=== PATIENT | female | born 1960 | race Caucasian/White ===

== ENCOUNTER 2016-10-20 13:07 | Inpatient (IN) | payer OTHER ==
[~2016-10-20] VITALS: Ht 162.6 cm; Wt 86.2 kg
[~2016-10-20 13:07] MED LIST: ACET500T68 PO; ASPI81TA2 PO; ATOR10TA PO; CITA20TA9 PO; FEXO180T5 PO; FEXO1TAB31 PO; FLUT12HF2 IH; FLUT1DIS IH; HYDR25CA PO; LANS30CA17 PO; LATA2.5D2 OP; LEVO750P7 IV; METH4TAB2 PO; METR500P3 IV; MOME13HF2 IH; MONT10TA9 PO; ONDA4TAB10 SL; OXYC-244 PO; OXYC5TAB PO; PANT40TA3 PO; RANI150T6 PO; XOPENEX HFA15 GM IH; ZONI100C12 PO
[2016-10-20] MEDS ORDERED: IV NORMAL SALINE 1000ML BAG 1,000 ML IV ONE ×2 (13:45→16:30)
[2016-10-20] MEDS ORDERED: ONDANSETRON PF 4 MG/2 ML VIAL. IV ONE ×2 (13:45→16:30)
--- NOTE | 2016-10-20 13:59 | ED.ADGEN ---
Past Medical History Past Medical History: Anemia, Arthritis, Asthma, Diabetes-Type II, Diverticulitis, GERD, Glaucoma, IBS, Other Additional Past Medical Histor: diverticular abscess, lumbar facet arthropathy, Past Surgical History: Cholecystectomy, Colectomy, Hysterectomy, Other Additional Past Surgical Histo: CARPAL TUNNEL, POLYPECTOMY, NASAL, R SHOULDER, ILEOSTOMY Alcohol Use: Rarely Drug Use: None Adult General Chief Complaint Chief Complaint: ABDOMINAL PAIN HPI HPI Patient is a 56 year old female presents emergency department complaining of nausea, vomiting, diarrhea, and diffuse abdominal pain. Patient began with diarrhea 3 nights ago. She has been trying to hydrate aggressively at home but she has also been battling a fever for last 48 hours. She tells me that she is not really had much abdominal pain is much as just some soreness. However, she states that she has had a diverticular abscess in the past presented similarly. She reports decreased urinary output. Review of Systems Review of Systems Constitutional: Denies fever or chills. [] Eyes: Denies change in visual acuity. [] HENT: Denies nasal congestion or sore throat. [] Respiratory: Denies cough or shortness of breath. [] Cardiovascular: Denies chest pain or edema. [] GI: Denies abdominal pain, nausea, vomiting, bloody stools or diarrhea. [] : Denies dysuria. [] Musculoskeletal: Denies back pain or joint pain. [] Integument: Denies rash. [] Neurologic: Denies headache, focal weakness or sensory changes. [] Endocrine: Denies polyuria or polydipsia. [] Lymphatic: Denies swollen glands. [] Psychiatric: Denies depression or anxiety. [] Current Medications Current Medications Current Medications Medications (Trade) Dose Ordered Sig/Froilan Start Time Stop Time Status Last Admin Dose Admin Fentanyl Citrate 75 mcg 75 mcg 1X ONCE 10/20/16 16:30 10/20/16 16:31 DC 10/20/16 16:05 75 MCG Hydromorphone HCl (Dilaudid) 1 mg 1X ONCE 10/20/16 17:45 10/20/16 17:46 DC 10/20/16 18:22 1 MG Info (Do NOT chart on this entry -- for MONITORING) 1 each PRN DAILY PRN 10/20/16 17:15 10/22/16 17:14 Iohexol (Omnipaque 300 Mg/ml) 60 ml 1X ONCE 10/20/16 17:30 10/20/16 17:31 DC 10/20/16 17:08 60 ML Ondansetron HCl (Zofran) 4 mg 1X ONCE 10/20/16 16:30 10/20/16 16:31 DC 10/20/16 16:03 4 MG Sodium Chloride (Iv Sodium Chloride 0.9% 1000ml Bag) 1,000 ml @ 1,000 mls/hr 1X ONCE 10/20/16 16:30 10/20/16 17:29 DC 10/20/16 16:03 1,000 MLS/HR Allergies Allergies Allergies Coded Allergies Type Severity Reaction Last Updated Verified levofloxacin Allergy Severe Hives 03/07/16 Yes metronidazole Allergy Severe Hives 03/07/16 Yes Cephalosporins Allergy Intermediate 03/07/16 Yes cephalexin Allergy Intermediate rash 03/07/16 Yes chlorhexidine Allergy Intermediate rash 03/07/16 Yes hyaluronic acid Allergy Intermediate 03/07/16 Yes nifedipine Allergy Intermediate edema 03/07/16 Yes pneumococcal vaccine Allergy Intermediate swelling 03/07/16 Yes shellfish derived Allergy Intermediate 10/20/16 Yes CARMELA Inhibitors Adverse Reaction Intermediate cough 03/07/16 Yes clarithromycin Adverse Reaction Intermediate diarrhea 03/07/16 Yes erythromycin base Adverse Reaction Intermediate diarrhea 03/07/16 Yes Physical Exam Physical Exam Constitutional: Well developed, well nourished, no acute distress, non-toxic appearance. [] HENT: Normocephalic, atraumatic, bilateral external ears normal, oropharynx moist, no oral exudates, nose normal. [] Eyes: PERRLA, EOMI, conjunctiva normal, no discharge. [] Neck: Normal range of motion, no tenderness, supple, no stridor. [] Cardiovascular:Heart rate regular rhythm, no murmur [] Lungs & Thorax: Bilateral breath sounds clear to auscultation [] Abdomen: Bowel sounds normal, soft, diffuse abdominal tenderness to palpation without peritoneal signs, no masses, no pulsatile masses. [] Skin: Warm, dry, no erythema, no rash. [] Back: No tenderness, no CVA tenderness. [] Extremities: No tenderness, no cyanosis, no clubbing, ROM intact, no edema. [] Neurologic: Alert and oriented X 3, normal motor function, normal sensory function, no focal deficits noted. [] Psychologic: Affect normal, judgement normal, mood normal. [] Current Patient Data Vital Signs Vital Signs Date Time Temp Pulse Resp B/P Pulse Ox O2 Delivery O2 Flow Rate FiO2 10/20/16 16:05 16 10/20/16 13:23 99.1 122 153/97 94 Room Air 99.1 Lab Values Laboratory Tests Test 10/20/16 13:50 10/20/16 14:40 10/20/16 16:05 White Blood Count 14.6x10^3/uL (4.0-11.0) H Red Blood Count 4.83x10^6/uL (3.50-5.40) Hemoglobin 13.9g/dL (12.0-15.5) Hematocrit 42.3% (36.0-47.0) Mean Corpuscular Volume 88fL (79-100) Mean Corpuscular Hemoglobin 29pg (25-35) Mean Corpuscular Hemoglobin Concent 33g/dL (31-37) Red Cell Distribution Width 14.8% (11.5-14.5) H Platelet Count 274x10^3/uL (140-400) Neutrophils (%) (Auto) 83% (31-73) H Lymphocytes (%) (Auto) 10% (24-48) L Monocytes (%) (Auto) 6% (0-9) Eosinophils (%) (Auto) 0% (0-3) Basophils (%) (Auto) 1% (0-3) Neutrophils # (Auto) 12.2x10^3uL (1.8-7.7) H Lymphocytes # (Auto) 1.5x10^3/uL (1.0-4.8) Monocytes # (Auto) 0.9x10^3/uL (0.0-1.1) Eosinophils # (Auto) 0.1x10^3/uL (0.0-0.7) Basophils # (Auto) 0.1x10^3/uL (0.0-0.2) Sodium Level 141mmol/L (136-145) Potassium Level 4.1mmol/L (3.5-5.1) Chloride Level 102mmol/L (98-107) Carbon Dioxide Level 25mmol/L (21-32) Anion Gap 14 (6-14) Blood Urea Nitrogen 21mg/dL (7-20) H Creatinine 1.0mg/dL (0.6-1.0) Estimated GFR (Cockcroft-Gault) 57.4 Glucose Level 113mg/dL (70-99) H Calcium Level 9.1mg/dL (8.5-10.1) Total Bilirubin 0.4mg/dL (0.2-1.0) Direct Bilirubin 0.1mg/dL (0.0-0.2) Aspartate Amino Transferase (AST) 13U/L (15-37) L Alanine Aminotransferase (ALT) 21U/L (14-59) Alkaline Phosphatase 77U/L (46-116) Troponin I Quantitative < 0.017ng/mL (0.000-0.055) HJ-Zti-[id number]-Type Natriuretic Peptide 28pg/mL (0-124) Total Protein 6.8g/dL (6.4-8.2) Albumin 3.4g/dL (3.4-5.0) Lipase 91U/L (73-393) Urine Collection Type Unknown Urine Color Yellow Urine Clarity Clear Urine pH 6.0 Urine Specific [place] >=1.030 Urine Protein >=300mg/dL (NEG-TRACE) Urine Glucose (UA) Negativemg/dL (NEG) Urine Ketones (Stick) 15mg/dL (NEG) Urine Blood Moderate (NEG) Urine Nitrite Negative (NEG) Urine Bilirubin Small (NEG) Urine Urobilinogen Dipstick 0.2mg/dL (0.2 mg/dL) Urine Leukocyte Esterase Negative (NEG) Urine RBC 3-5/HPF (0-2) Urine WBC Occ/HPF (0-4) Urine Squamous Epithelial Cells Few/LPF Urine Bacteria Few/HPF (0-FEW) Urine Hyaline Casts Few/HPF Urine Mucus Mod/LPF Influenza Type A Antigen Negative (NEGATIVE) Influenza Type B Antigen Negative (NEGATIVE) Laboratory Tests 10/20/16 13:50 Laboratory Tests 10/20/16 14:40 EKG EKG [] Radiology/Procedures Radiology/Procedures INDICATION: 56-year-old female with abdominal pain. COMPARISON: March 18, 2015 TECHNIQUE: Axial CT images obtained through the abdomen and pelvis following the intravenous administration of contrast 60 cc of Omni 300. Coronal and sagittal reformats are provided. One or more of the following individualized dose reduction techniques were utilized for this examination: 1. Automated exposure control; 2. Adjustment of the mA and/or kV according to patient size; 3. Use of iterative reconstruction technique. FINDINGS: Visualized lung bases demonstrate no acute finding. A 5 mm noncalcified nodule is seen within the right lower lobe, with this region on included on the previous CT exam. The liver, spleen, pancreas, adrenal glands and bilateral kidneys demonstrate no focal abnormality. The gallbladder is surgically absent. The GI tract demonstrates no dilated bowel loops to suggest obstruction. Anastomotic bowel suture is seen within the lower abdomen and pelvis. There is circumferential bowel wall thickening involving the ascending colon with minimal adjacent soft tissue stranding. No significant colonic diverticula are seen. The urinary bladder is decompressed and not well evaluated. No intra-abdominal or pelvic free fluid, free air or significant lymphadenopathy is seen. The aorta is normal in caliber. Visualized osseous structures and overlying soft tissues demonstrate no acute interval change. There is some laxity of the anterior abdominal wall inferiorly, with postsurgical scar suggested overlying the right lower quadrant. Degenerative changes present throughout the spine. IMPRESSION: Circumferential wall thickening involving the ascending colon, likely represents colitis. No bowel obstruction, free air or fluid collection. Electronically signed by: Mesha Larsen (Oct 20, 2016 17:31:54) DICTATED and SIGNED BY: MESHA LARSEN MD DATE: 10/20/16 1735 CC: EDINSON KEENAN MD; JOSR SHARMA MD ~ [] Course & Med Decision Making Course & Med Decision Making Pertinent Labs and Imaging studies reviewed. (See chart for details) The patient's CT scan demonstrates a colitis. She has had several liters of fluid as well as antiemetics and pain medicines and is improving and still appears to be uncomfortable and behind on her fluids. Patient be admitted to the hospitalist service for further hydration and supportive care as needed. Colitis, DMII, Asthma, GERD [] Dragon Disclaimer Dragon Disclaimer This electronic medical record was generated, in whole or in part, using a voice recognition dictation system. EDINSON KEENAN MD Oct 20, 2016 13:59
[2016-10-20 14:04] LABS: BASO # 0.1 x10^3/uL (0.0-0.2); BASO % 1 % (0-3); EOS % 0 % (0-3); HEMATOCRIT 42.3 % (36.0-47.0); HEMOGLOBIN 13.9 g/dL (12.0-15.5); LYMPH # 1.5 x10^3/uL (1.0-4.8); LYMPH % 10 % (24-48); MEAN CORPUSCULAR HEMOGLOBIN 29 pg (25-35); MEAN CORPUSCULAR HGB CONC 33 g/dL (31-37); MEAN CORPUSCULAR VOLUME 88 fL (79-100); MONO % 6 % (0-9); NEUT % 83 % (31-73); PLATELET COUNT 274 x10^3/uL (140-400); RED BLOOD COUNT 4.83 x10^6/uL (3.50-5.40); RED CELL DISTRIBUTION WIDTH 14.8 % (11.5-14.5); WHITE BLOOD COUNT 14.6 x10^3/uL (4.0-11.0)
--- NOTE | 2016-10-20 14:15 | RAD ---
Abdomen series with chest, 3 views, 10/20/2016: History: Nausea, vomiting, diarrhea There is a moderate amount of gas in large and small bowel in a nonspecific pattern. No free air seen in the abdomen. Surgical clips are present in the right upper quadrant. Surgical sutures are present in the pelvis. There is no evidence of organomegaly. Moderate degenerative change is present in the spine. The heart size and pulmonary vascularity are normal. The lungs are clear. There is no evidence of pleural fluid. IMPRESSION: No acute abdominal abnormality is detected.
[2016-10-20 15:26] LABS: CALCIUM 9.1 mg/dL (8.5-10.1); GFR 57.4; POTASSIUM 4.1 mmol/L (3.5-5.1)
[2016-10-20 15:32] LABS: ALBUMIN 3.4 g/dL (3.4-5.0); DIRECT BILIRUBIN 0.1 mg/dL (0.0-0.2); TOTAL BILIRUBIN 0.4 mg/dL (0.2-1.0); TOTAL PROTEIN 6.8 g/dL (6.4-8.2)
[2016-10-20] MEDS ORDERED: FENTANYL PF 100 MCG/2 ML VIAL. IV ONE (16:30)
[2016-10-20 16:31] LABS: BILIRUBIN,URINE SMALL (NEG); GLUCOSE,URINE NEGATIVE (NEG); NITRITE,URINE NEGATIVE (NEG); PROTEIN,URINE >=300 mg/dL (NEG-TRACE); UROBILINOGEN,URINE 0.2 mg/dL (0.2 mg/dL)
[2016-10-20 16:38] LABS: BACTERIA,URINE FEW /HPF (0-FEW); SQUAMOUS EPITHELIAL CELL,UR FEW /LPF; WBC,URINE OCC /HPF (0-4)
[2016-10-20 16:42] LABS: OBC FLU VALID
[2016-10-20] MEDS ORDERED: CONTRAST GIVEN MC PRN (17:15)
[2016-10-20] MEDS ORDERED: IOHEXOL 300 MG/ML 75 ML VIAL IV ONE (17:30)
--- NOTE | 2016-10-20 17:33 | RAD ---
INDICATION: 56-year-old female with abdominal pain. COMPARISON: March 18, 2015 TECHNIQUE: Axial CT images obtained through the abdomen and pelvis following the intravenous administration of contrast 60 cc of Omni 300. Coronal and sagittal reformats are provided. One or more of the following individualized dose reduction techniques were utilized for this examination: 1. Automated exposure control; 2. Adjustment of the mA and/or kV according to patient size; 3. Use of iterative reconstruction technique. FINDINGS: Visualized lung bases demonstrate no acute finding. A 5 mm noncalcified nodule is seen within the right lower lobe, with this region on included on the previous CT exam. The liver, spleen, pancreas, adrenal glands and bilateral kidneys demonstrate no focal abnormality. The gallbladder is surgically absent. The GI tract demonstrates no dilated bowel loops to suggest obstruction. Anastomotic bowel suture is seen within the lower abdomen and pelvis. There is circumferential bowel wall thickening involving the ascending colon with minimal adjacent soft tissue stranding. No significant colonic diverticula are seen. The urinary bladder is decompressed and not well evaluated. No intra-abdominal or pelvic free fluid, free air or significant lymphadenopathy is seen. The aorta is normal in caliber. Visualized osseous structures and overlying soft tissues demonstrate no acute interval change. There is some laxity of the anterior abdominal wall inferiorly, with postsurgical scar suggested overlying the right lower quadrant. Degenerative changes present throughout the spine. IMPRESSION: Circumferential wall thickening involving the ascending colon, likely represents colitis. No bowel obstruction, free air or fluid collection. Electronically signed by: Fernanda Raphael (Oct 20, 2016 17:31:54)
[2016-10-20] MEDS ORDERED: HYDROMORPHONE 2 MG/ML VIAL. IV ONE (17:45)
[2016-10-20] MEDS ORDERED: ACETAMINOPHEN 325 MG TABLET. PO PRN (18:15)
[2016-10-20] MEDS ORDERED: FENTANYL PF 100 MCG/2 ML VIAL. IV PRN (18:15)
[2016-10-20] MEDS ORDERED: ONDANSETRON PF 4 MG/2 ML VIAL. IV PRN ×2 (18:15→22:00)
[2016-10-20 20:00] VITALS: BP 128/76
[2016-10-20] MEDS ORDERED: CYCL1DRO EACHEYE (20:54)
[2016-10-20] MEDS: IV NORMAL SALINE 1000ML BAG 1,000 ML IV SCH (21:29)
[2016-10-20] MEDS ORDERED: LEVALBUTEROL TARTRATE 45 MCG IH PRN (22:00)
[2016-10-20 23:00] VITALS: BP 121/65
[2016-10-20] MEDS: FAMOTIDINE 20 MG TABLET. PO SCH (23:01)
[2016-10-20] MEDS: ATORVASTATIN CALCIUM 10 MG TABLET. PO SCH (23:01)
[2016-10-20] MEDS: MONTELUKAST SODIUM 10 MG TABLET. PO SCH (23:01)
[2016-10-20] MEDS: ACETAMINOPHEN 500 MG TABLET PO PRN (23:01)
[2016-10-20] MEDS: LATANOPROST 0.005% OPHTH SOLUTION 2.5ML BOTTLE. OU SCH (23:01)
[2016-10-20] MEDS: MORPHINE SULFATE 2 MG/ML DISP.SYRIN. IV PRN (23:02)
[2016-10-20] MEDS: CYCLOSPORINE 0.05% OPTH DROPERETTE. OU SCH (23:02)
[2016-10-20] MEDS: PIPERACILLIN/TAZOBACTAM 3.375 GM in IV NORMAL SALINE 50ML 50 ML IV SCH (23:50)
[2016-10-21] MEDS: IV NORMAL SALINE 1000ML BAG 1,000 ML IV SCH ×3 (02:27→15:46)
[2016-10-21 03:00] VITALS: BP 96/53
[2016-10-21] MEDS: PIPERACILLIN/TAZOBACTAM 3.375 GM in IV NORMAL SALINE 50ML 50 ML IV SCH ×3 (05:11→18:28)
[2016-10-21] MEDS: MORPHINE SULFATE 2 MG/ML DISP.SYRIN. IV PRN ×2 (05:11→10:40)
[2016-10-21 07:00] VITALS: BP 116/64
[2016-10-21] MEDS: BUDESONIDE 0.5 MG/2 ML NEBU NEB SCH ×2 (07:45→19:15)
[2016-10-21] MEDS: ALBUTEROL SULFATE 2.5 MG/3 ML NEBU. NEB SCH ×4 (07:45→19:15)
[2016-10-21] MEDS: CYCLOSPORINE 0.05% OPTH DROPERETTE. OU SCH ×2 (08:34→21:27)
[2016-10-21] MEDS: PANTOPRAZOLE 40 MG TABLET. PO SCH (08:34)
[2016-10-21] MEDS: CETIRIZINE HCL 10 MG TABLET PO SCH (08:34)
[2016-10-21] MEDS ORDERED: SALMETEROL IH SCH (09:00)
[2016-10-21] MEDS ORDERED: FLUTICASONE IH SCH (09:00)
[2016-10-21] MEDS ORDERED: ONDANSETRON PF 4 MG/2 ML VIAL. IV PRN (09:22)
[2016-10-21] MEDS ORDERED: FENTANYL PF 100 MCG/2 ML VIAL. IV PRN (09:22)
--- NOTE | 2016-10-21 09:47 | HP ---
ADMIT DATE: 10/20/2016 CHIEF COMPLAINT: Abdominal pain. HISTORY OF PRESENT ILLNESS: The patient is a 56-year-old woman with significant past medical history of multiple abdominal abscesses, requiring surgeries and unfortunately accompanied by multiple complications, who now presents with abdominal pain in the right lower quadrant about 3 nights ago. She relates that she occasionally after eating certain foods may develop diarrhea, which typically goes over by itself. This is actually happened 3 days ago. She tried to hydrate herself, but essentially could not get ahead of fluid losses with diarrhea. Her pain at the previous diverticular abscesses was actually on the right, same as current presentation. She denies any fevers or chills, any nausea. She has noted decreased urine output. In the Emergency Room, a CT of the abdomen showed circumferential wall thickening involving the ascending colon, likely representing colitis. No bowel obstruction, free air or fluid collection was noted. The patient was therefore admitted for IV hydration, symptom control and antibiotics. PAST MEDICAL HISTORY: Diverticular abscess with fistula formation, requiring surgery 2 years ago; common variable immunodeficiency with low IgG; diabetes mellitus, diet controlled; GERD; IBS; glaucoma; osteoarthritis; asthma; anemia. PAST SURGICAL HISTORY: She is status post bowel resection, ostomy and reversal, cholecystectomy, hysterectomy. FAMILY HISTORY: Negative for any GI issues. SOCIAL HISTORY: Lives by herself , no toxic habits. ALLERGIES: Multiple, please refer to list in computer. HOME MEDICATIONS: Reconciled with MAR. REVIEW OF SYSTEMS: Positive as per HPI. Rest of organ system review is negative. PHYSICAL EXAMINATION: VITAL SIGNS: Blood pressure of 128/76, heart rate of 109, respiratory rate of 20. She has a temperature of 100.4. GENERAL: This is an obese 56-year-old woman, alert and oriented, in no acute distress. HEENT: Shows no scleral icterus. Oral mucosa is dry. LUNGS: Clear to auscultation. HEART: Tachycardic. ABDOMEN: Positive bowel sounds. Minimal tenderness to palpation in the right lower quadrant. EXTREMITIES: Show no edema. SKIN: Warm, soft and dry without any rash. LABORATORY DATA: CBC with a WBC of 14.6, hemoglobin 13.9, platelets of 274. Chemistries with BUN and creatinine of 21 and 1. Electrolytes within normal limits. LFTs normal. Albumin 3.4. Influenza A and B are negative. UA is negative for infectious symptoms. CT of the abdomen and pelvis with circumferential wall thickening involving the ascending colon. ASSESSMENT AND PLAN: The patient is a 56-year-old woman with significant GI history with abscesses and surgeries, now presenting with colitis. Given her past medical history, including common variable immunodeficiency, we will admit her to the hospital. Continue IV hydration and monitoring her electrolytes. She will be started on Zosyn empirically, especially given elevated WBC and a borderline fevers. We will obtain IgG levels. Should those be low, IVIG may be indicated. For pain, she will be started with morphine IV p.r.n. Antiemetics are available p.r.n. as well. Given her working environment, we will rule out C. diff colitis as well. For her diabetes, insulin sliding scale will be instituted diabetic diet, hopefully will control her sugars at home. We will continue all her other home medications as indicated. For prophylaxis, she is already on H2 mulugeta. We will add heparin/Lovenox in a.m. should prolonged hospitalization be anticipated. HARVEY QUEZADA MD DR: ALECIA/nts JOB#: [id number] / [id number] YEN
[2016-10-21] MEDS: ACETAMINOPHEN 500 MG TABLET PO PRN (10:43)
[2016-10-21 11:00] VITALS: BP 113/68
[2016-10-21 12:13] LABS: IMMUNOGLOBULIN M 41 mg/dL (26-217)
--- NOTE | 2016-10-21 14:21 | PDOC ---
PROGRESS NOTES Chief Complaint Chief Complaint 1. COlitis, ascending colon 2. Diverticular abscess with fistula formation, requiring surgery 2 years ago; common variable immunodeficiency with low IgG; diabetes mellitus, diet controlled; GERD; IBS; glaucoma; osteoarthritis; asthma; anemia. History of Present Illness History of Present Illness ABdomen more of sore, lower abd area, but no pain On liquid diet Still diarrhea Temps 101 today ESR pending NO lactate iGM 40 IgG pending plaN: FF UP iGg LEVELS - Follows UP AT [facility] [employer] iGM is normal COnt zosyn CHecl LActate and esr Get gI and ID consults COnt liquid diet for now Send for stool studies Dw pt Vitals Vitals Vital Signs Date Time Temp Pulse Resp B/P Pulse Ox O2 Delivery O2 Flow Rate FiO2 10/21/16 11:14 16 Room Air 10/21/16 11:00 102.3 113 113/68 93 102.3 Physical Exam General: Alert, Oriented X3, Cooperative Heart: Regular rate, Normal S1, Normal S2 Lungs: Clear Abdomen: Normal bowel sounds Extremities: No clubbing, No cyanosis Skin: No rashes, No breakdown Labs LABS Laboratory Tests Test 10/20/16 14:40 10/20/16 16:05 10/20/16 21:08 10/21/16 04:40 Sodium Level 141mmol/L (136-145) Potassium Level 4.1mmol/L (3.5-5.1) Chloride Level 102mmol/L (98-107) Carbon Dioxide Level 25mmol/L (21-32) Anion Gap 14 (6-14) Blood Urea Nitrogen 21mg/dL (7-20) Creatinine 1.0mg/dL (0.6-1.0) Estimated GFR (Cockcroft-Gault) 57.4 Glucose Level 113mg/dL (70-99) Calcium Level 9.1mg/dL (8.5-10.1) Total Bilirubin 0.4mg/dL (0.2-1.0) Direct Bilirubin 0.1mg/dL (0.0-0.2) Aspartate Amino Transf (AST/SGOT) 13U/L (15-37) Alanine Aminotransferase (ALT/SGPT) 21U/L (14-59) Alkaline Phosphatase 77U/L (46-116) Troponin I Quantitative < 0.017ng/mL (0.000-0.055) WR-[id number]-[id number]-Type Natriuretic Peptide 28pg/mL (0-124) Total Protein 6.8g/dL (6.4-8.2) Albumin 3.4g/dL (3.4-5.0) Lipase 91U/L (73-393) Urine Collection Type Unknown Urine Color Yellow Urine Clarity Clear Urine pH 6.0 Urine Specific [place] >=1.030 Urine Protein >=300mg/dL (NEG-TRACE) Urine Glucose (UA) Negativemg/dL (NEG) Urine Ketones (Stick) 15mg/dL (NEG) Urine Blood Moderate (NEG) Urine Nitrite Negative (NEG) Urine Bilirubin Small (NEG) Urine Urobilinogen Dipstick 0.2mg/dL (0.2 mg/dL) Urine Leukocyte Esterase Negative (NEG) Urine RBC 3-5/HPF (0-2) Urine WBC Occ/HPF (0-4) Urine Squamous Epithelial Cells Few/LPF Urine Bacteria Few/HPF (0-FEW) Urine Hyaline Casts Few/HPF Urine Mucus Mod/LPF Influenza Type A Antigen Negative (NEGATIVE) Influenza Type B Antigen Negative (NEGATIVE) Glucose (Fingerstick) 91mg/dL (70-99) Immunoglobulin M 41mg/dL (26-217) Test 10/21/16 07:29 10/21/16 11:53 Glucose (Fingerstick) 144mg/dL (70-99) 146mg/dL (70-99) Review of Systems Review of Systems abd soreness, diarrhea, fevers Assessment and Plan Assessmemt and Plan Problems Medical Problems: (1) Asthma Status: Acute (2) Asthma Status: Acute (3) Colitis Status: Acute (4) Colitis Status: Acute (5) DMII (diabetes mellitus, type 2) Status: Acute (6) GERD (gastroesophageal reflux disease) Status: Acute (7) GERD (gastroesophageal reflux disease) Status: Acute Problems: Comment Review of Relevant I have reviewed the following items corazon (where applicable) has been applied. Labs Laboratory Tests Test 10/20/16 13:50 10/20/16 14:40 10/20/16 16:05 10/20/16 21:08 White Blood Count 14.6x10^3/uL (4.0-11.0) Red Blood Count 4.83x10^6/uL (3.50-5.40) Hemoglobin 13.9g/dL (12.0-15.5) Hematocrit 42.3% (36.0-47.0) Mean Corpuscular Volume 88fL (79-100) Mean Corpuscular Hemoglobin 29pg (25-35) Mean Corpuscular Hemoglobin Concent 33g/dL (31-37) Red Cell Distribution Width 14.8% (11.5-14.5) Platelet Count 274x10^3/uL (140-400) Neutrophils (%) (Auto) 83% (31-73) Lymphocytes (%) (Auto) 10% (24-48) Monocytes (%) (Auto) 6% (0-9) Eosinophils (%) (Auto) 0% (0-3) Basophils (%) (Auto) 1% (0-3) Neutrophils # (Auto) 12.2x10^3uL (1.8-7.7) Lymphocytes # (Auto) 1.5x10^3/uL (1.0-4.8) Monocytes # (Auto) 0.9x10^3/uL (0.0-1.1) Eosinophils # (Auto) 0.1x10^3/uL (0.0-0.7) Basophils # (Auto) 0.1x10^3/uL (0.0-0.2) Sodium Level 141mmol/L (136-145) Potassium Level 4.1mmol/L (3.5-5.1) Chloride Level 102mmol/L (98-107) Carbon Dioxide Level 25mmol/L (21-32) Anion Gap 14 (6-14) Blood Urea Nitrogen 21mg/dL (7-20) Creatinine 1.0mg/dL (0.6-1.0) Estimated GFR (Cockcroft-Gault) 57.4 Glucose Level 113mg/dL (70-99) Calcium Level 9.1mg/dL (8.5-10.1) Total Bilirubin 0.4mg/dL (0.2-1.0) Direct Bilirubin 0.1mg/dL (0.0-0.2) Aspartate Amino Transf (AST/SGOT) 13U/L (15-37) Alanine Aminotransferase (ALT/SGPT) 21U/L (14-59) Alkaline Phosphatase 77U/L (46-116) Troponin I Quantitative < 0.017ng/mL (0.000-0.055) LJ-Usf-H-Type Natriuretic Peptide 28pg/mL (0-124) Total Protein 6.8g/dL (6.4-8.2) Albumin 3.4g/dL (3.4-5.0) Lipase 91U/L (73-393) Urine Collection Type Unknown Urine Color Yellow Urine Clarity Clear Urine pH 6.0 Urine Specific [place] >=1.030 Urine Protein >=300mg/dL (NEG-TRACE) Urine Glucose (UA) Negativemg/dL (NEG) Urine Ketones (Stick) 15mg/dL (NEG) Urine Blood Moderate (NEG) Urine Nitrite Negative (NEG) Urine Bilirubin Small (NEG) Urine Urobilinogen Dipstick 0.2mg/dL (0.2 mg/dL) Urine Leukocyte Esterase Negative (NEG) Urine RBC 3-5/HPF (0-2) Urine WBC Occ/HPF (0-4) Urine Squamous Epithelial Cells Few/LPF Urine Bacteria Few/HPF (0-FEW) Urine Hyaline Casts Few/HPF Urine Mucus Mod/LPF Influenza Type A Antigen Negative (NEGATIVE) Influenza Type B Antigen Negative (NEGATIVE) Glucose (Fingerstick) 91mg/dL (70-99) Test 10/21/16 04:40 10/21/16 07:29 10/21/16 11:53 Immunoglobulin M 41mg/dL (26-217) Glucose (Fingerstick) 144mg/dL (70-99) 146mg/dL (70-99) Laboratory Tests Test 10/20/16 14:40 10/20/16 16:05 10/20/16 21:08 10/21/16 04:40 Sodium Level 141mmol/L (136-145) Potassium Level 4.1mmol/L (3.5-5.1) Chloride Level 102mmol/L (98-107) Carbon Dioxide Level 25mmol/L (21-32) Anion Gap 14 (6-14) Blood Urea Nitrogen 21mg/dL (7-20) Creatinine 1.0mg/dL (0.6-1.0) Estimated GFR (Cockcroft-Gault) 57.4 Glucose Level 113mg/dL (70-99) Calcium Level 9.1mg/dL (8.5-10.1) Total Bilirubin 0.4mg/dL (0.2-1.0) Direct Bilirubin 0.1mg/dL (0.0-0.2) Aspartate Amino Transf (AST/SGOT) 13U/L (15-37) Alanine Aminotransferase (ALT/SGPT) 21U/L (14-59) Alkaline Phosphatase 77U/L (46-116) Troponin I Quantitative < 0.017ng/mL (0.000-0.055) UN-Eku-T-Type Natriuretic Peptide 28pg/mL (0-124) Total Protein 6.8g/dL (6.4-8.2) Albumin 3.4g/dL (3.4-5.0) Lipase 91U/L (73-393) Urine Collection Type Unknown Urine Color Yellow Urine Clarity Clear Urine pH 6.0 Urine Specific [place] >=1.030 Urine Protein >=300mg/dL (NEG-TRACE) Urine Glucose (UA) Negativemg/dL (NEG) Urine Ketones (Stick) 15mg/dL (NEG) Urine Blood Moderate (NEG) Urine Nitrite Negative (NEG) Urine Bilirubin Small (NEG) Urine Urobilinogen Dipstick 0.2mg/dL (0.2 mg/dL) Urine Leukocyte Esterase Negative (NEG) Urine RBC 3-5/HPF (0-2) Urine WBC Occ/HPF (0-4) Urine Squamous Epithelial Cells Few/LPF Urine Bacteria Few/HPF (0-FEW) Urine Hyaline Casts Few/HPF Urine Mucus Mod/LPF Influenza Type A Antigen Negative (NEGATIVE) Influenza Type B Antigen Negative (NEGATIVE) Glucose (Fingerstick) 91mg/dL (70-99) Immunoglobulin M 41mg/dL (26-217) Test 10/21/16 07:29 10/21/16 11:53 Glucose (Fingerstick) 144mg/dL (70-99) 146mg/dL (70-99) Medications Current Medications Sodium Chloride (Iv Sodium Chloride 0.9% 1000ml Bag) 1,000 ml @ 1,000 mls/hr 1X ONCE IV Last administered on 10/20/16 13:54; Start 10/20/16 at 13:45; Stop 10/20/16 at 14:44; Status DC Ondansetron HCl (Zofran) 4 mg 1X ONCE IV Last administered on 10/20/16 13:54 ; Start 10/20/16 at 13:45; Stop 10/20/16 at 13:47; Status DC Ondansetron HCl (Zofran) 4 mg 1X ONCE IV Last administered on 10/20/16 16:03 ; Start 10/20/16 at 16:30; Stop 10/20/16 at 16:31; Status DC Fentanyl Citrate 75 mcg 75 mcg 1X ONCE IV Last administered on 10/20/16 16:05 ; Start 10/20/16 at 16:30; Stop 10/20/16 at 16:31; Status DC Sodium Chloride (Iv Sodium Chloride 0.9% 1000ml Bag) 1,000 ml @ 1,000 mls/hr 1X ONCE IV Last administered on 10/20/16 16:03; Start 10/20/16 at 16:30; Stop 10/20/16 at 17:29; Status DC Iohexol (Omnipaque 300 Mg/ml) 60 ml 1X ONCE IV Last administered on 10/20/16 17:08; Start 10/20/16 at 17:30; Stop 10/20/16 at 17:31; Status DC Info (Do NOT chart on this entry -- for MONITORING) 1 each PRN DAILY PRN MC SEE COMMENTS; Start 10/20/16 at 17:15; Stop 10/22/16 at 17:14 Hydromorphone HCl (Dilaudid) 1 mg 1X ONCE IV Last administered on 10/20/16 18 :22; Start 10/20/16 at 17:45; Stop 10/20/16 at 17:46; Status DC Ondansetron HCl (Zofran) 4 mg PRN Q8HRS PRN IV NAUSEA/VOMITING; Start 10/20/16 at 18:15; Stop 10/21/16 at 09:24; Status DC Fentanyl Citrate 75 mcg 75 mcg PRN Q1HR PRN IV PAIN; Start 10/20/16 at 18:15; Stop 10/21/16 at 09:24; Status DC Sodium Chloride (Iv Sodium Chloride 0.9% 1000ml Bag) 1,000 ml @ 120 mls/hr Q8H20M IV Last administered on 10/21/16 06:04; Start 10/20/16 at 18:07; Stop 10/21/16 at 18:06 Acetaminophen (Tylenol) 650 mg PRN Q4HRS PRN PO FEVER; Start 10/20/16 at 18:15 ; Stop 10/21/16 at 18:14 Acetaminophen (Tylenol) 1,000 mg PRN Q6HRS PRN PO PAIN Last administered on 10:43; Start 10/20/16 at 22:00 Atorvastatin Calcium (Lipitor) 10 mg HS PO Last administered on 10/20/16 23:01 ; Start 10/20/16 at 22:00 Cyclosporine (Restasis) 1 drop BID OU Last administered on 10/21/16 08:34; Start 10/20/16 at 22:00 Latanoprost (Xalatan) 1 drop HS OU Last administered on 10/20/16 23:01; Start 10/20/16 at 22:00 Montelukast Sodium (Singulair) 10 mg HS PO Last administered on 10/20/16 23:01 ; Start 10/20/16 at 22:00 Pantoprazole Sodium (Protonix) 40 mg DAILYAC PO Last administered on 10/21/16 08:34; Start 10/21/16 at 07:30 Cetirizine HCl (Zyrtec) 10 mg DAILY PO ; Start 10/21/16 at 09:00 Non-Formulary Medication 2 inh BID IH ; Start 10/21/16 at 09:00; Status UNV Non-Formulary Medication 45 mcg DAILY PRN IH SHORTNESS OF BREATH; Start at 22:00; Status UNV Famotidine 20 mg 20 mg QHS PO Last administered on 10/20/16 23:01; Start 10/20 at 22:00 Piperacillin Sod/ Tazobactam Sod/ Sodium Chloride (Zosyn/Iv Sodium Chloride 0.9 % 50ml) 50 ml @ 100 mls/hr Q6HRS IV Last administered on 10/21/16 12:15; Start 10/21/16 at 00:00 Morphine Sulfate 2 mg PRN Q2HR PRN IV PAIN Last administered on 10/21/16 10:40 ; Start 10/20/16 at 22:00 Ondansetron HCl (Zofran) 4 mg PRN Q6HRS PRN IV NAUSEA/VOMITING Last administered on 10/21/16 04:12; Start 10/20/16 at 22:00; Stop 10/21/16 at 09:25 ; Status DC Budesonide (Pulmicort) 0.5 mg RTBID NEB ; Start 10/21/16 at 08:00 Albuterol Sulfate (Ventolin Neb Soln) 2.5 mg RTQID NEB ; Start 10/21/16 at 08:00 Fentanyl Citrate (Fentanyl 2ml Vial) 50 mcg PRN Q2HR PRN IV PAIN; Start at 09:22 Ondansetron HCl (Zofran) 4 mg PRN Q6HRS PRN IV NAUSEA/VOMITING Last administered on 10/21/16t 10:39; Start 10/21/16 at 09:22 Active Scripts Active Reported Restasis (Cyclosporine) 1 Each Droperette 1 Drop EACHEYE BID Advair Hfa 115-21 Mcg Inhaler (Fluticasone/Salmeterol) 12 Gm Hfa.aer.ad 2 Inh IH BID Acetaminophen 500 Mg Tablet 1,000 Mg PO Q6HRS PRN Protonix (Pantoprazole Sodium) 40 Mg Tablet.dr 40 Mg PO DAILY Fexofenadine Hcl 180 Mg Tablet 180 Mg PO DAILY Xalatan (Latanoprost) 2.5 Ml Drops 1 Drop OP HS Lipitor (Atorvastatin Calcium) 10 Mg Tablet 10 Mg PO HS Xopenex Hfa (Levalbuterol Tartrate) 15 Gm Hfa.aer.ad 45 Mcg IH DAILY PRN Montelukast Sodium Tablet (Montelukast Sodium) 10 Mg Tablet 10 Mg PO HS Zantac (Ranitidine Hcl) 150 Mg Tablet 150 Mg PO QHS Vitals/I & O Vital Sign - Last 24 Hours 10/20/16 10/20/16 10/20/16 10/20/16 14:48 15:18 15:48 16:05 Pulse 110 106 120 Resp 15 15 23 16 B/P 142/87 137/83 145/92 Pulse Ox 97 95 95 O2 Delivery Room Air Room Air Room Air 10/20/16 10/20/16 10/20/16 10/20/16 16:18 16:48 17:18 17:48 Pulse 110 106 106 110 Resp 20 12 15 12 B/P 151/87 135/76 131/75 123/64 Pulse Ox 95 95 95 95 O2 Delivery Room Air Room Air Room Air Room Air 10/20/16 10/20/16 10/20/16/26/17 18:18 18:22 18:48 20:00 Temp 100.4 100.4 Pulse 110 104 109 Resp 14 21 16 20 B/P 137/77 122/73 128/76 Pulse Ox 96 93 95 O2 Delivery Room Air Room Air Room Air 10/20/16 10/20/16 10/20/16 10/21/16 20:00 23:00 23:02 02:14 Temp 100.4 102.2 100.4 102.2 Pulse 109 121 Resp 20 18 B/P 128/76 121/65 Pulse Ox 95 94 O2 Delivery Room Air Room Air Room Air Room Air 10/21/16 10/21/16 10/21/16 10/21/16 03:00 05:11 07:00 08:00 Temp 97.7 101.3 97.7 101.3 Pulse 99 112 Resp 17 20 B/P 96/53 116/64 Pulse Ox 95 95 O2 Delivery Room Air Room Air Room Air Room Air 10/21/16 10/21/16 10/21/16 10:40 11:00 11:14 Temp 102.3 102.3 Pulse 113 Resp 16 18 16 B/P 113/68 Pulse Ox 93 O2 Delivery Room Air Room Air Room Air Intake and Output 10/20/16 10/20/16 10/21/16 15:00 23:00 07:00 Intake Total 2250 ml 200 ml Balance 2250 ml 200 ml PIPO VO MD Oct 21, 2016 14:21
[2016-10-21] MEDS ORDERED: HYDROCODONE/APAP 5/325MG TABLET. PO PRN (14:30)
[2016-10-21 15:00] VITALS: BP 121/74
--- NOTE | 2016-10-21 16:15 | PDOC2 ---
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 She ate a salad w/ chicken for lunch that day and was at first suspicious for food poisoning. Pain and diarrhea continued to the next when when she had a couple episodes of vomiting. That day, she also developed a fever (up to 102.9 at home). Due to ongoing symptoms, she came to the ER yesterday. Labs show: WBC 14.6, normal Hgb, BUN 21, C Diff negative. CT A/P showed ascending colitis. Stool culture pending. She has been started on IV atbx (Zosyn, note h/o multiple drug allergies) and ID consult is pending. Last temp 102.3 w/ some tachycardia. She has less pain today although still has RLQ cramping prior to stooling (relieved some after). Diarrhea (still watery, ranging in color from brown to orange to mario to green and w/ mucous) generally occurs ~30 min after drinking water. GI history is significant for diverticulitis w/ abscess and fistula (sigmoid to loop of small bowel) s/p resection w/ ostomy, peristomal abscess, and ostomy takedown (I believe at this facility and then at [facility]). With ostomy, she had difficulty w/ high-volume output. Since takedown, she takes Citrucel 2 tabs BID w/ fairly normal bowel habits and only occasional diarrhea after eating certain foods. She denies chronic abdominal pain although does suspect she has adhesions from previous surgeries. So far this year, she has had a URI treated w/ Augmentin x 10 days and also influenza A; she does admit to some previous abdominal soreness from coughing. Additional GI history of GERD controlled w/ PPI at home; note she also takes H2 mulugeta for allergies and has had previous EGDs, most recently normal into 2012. Last colonoscopy in 2014 prior to surgeries w/ Dr. Bashir. PMH: PMH: diverticulitis w/ abscess and fistula formation s/p resection w/ ostomy/takedown , GERD, immunodeficiency w/ loq IgG (sees immunology w/ check-up scheduled for next week), DM (diet-controlled), HLD, asthma and allergies, anemia, glaucoma, cholecystectomy, hysterectomy FH: Family History: No pertinent hx (no GI history) Social History: ALCOHOL: none Drugs: None ROS: GEN: +fevers HEENT: Denies blurred vision, sore throat CV: Denies chest pain RESP: Denies shortness of air, cough GI: Per HPI : Denies hematuria, dysuria ENDO: Denies weight changes NEURO: Denies confusion, dizziness MSK: Denies weakness, joint pain/swelling SKIN: Denies jaundice, pruritus VItals: Vitals: Vital Signs Date Time Temp Pulse Resp B/P Pulse Ox O2 Delivery O2 Flow Rate FiO2 10/21/16 11:14 16 Room Air 10/21/16 11:00 102.3 113 113/68 93 102.3 Labs: Labs: Laboratory Tests Test 10/20/16 16:05 10/20/16 21:08 10/21/16 00:45 10/21/16 04:40 Urine Collection Type Unknown Urine Color Yellow Urine Clarity Clear Urine pH 6.0 Urine Specific [place] >=1.030 Urine Protein >=300mg/dL (NEG-TRACE) Urine Glucose (UA) Negativemg/dL (NEG) Urine Ketones (Stick) 15mg/dL (NEG) Urine Blood Moderate (NEG) Urine Nitrite Negative (NEG) Urine Bilirubin Small (NEG) Urine Urobilinogen Dipstick 0.2mg/dL (0.2 mg/dL) Urine Leukocyte Esterase Negative (NEG) Urine RBC 3-5/HPF (0-2) Urine WBC Occ/HPF (0-4) Urine Squamous Epithelial Cells Few/LPF Urine Bacteria Few/HPF (0-FEW) Urine Hyaline Casts Few/HPF Urine Mucus Mod/LPF Influenza Type A Antigen Negative (NEGATIVE) Influenza Type B Antigen Negative (NEGATIVE) Glucose (Fingerstick) 91mg/dL (70-99) Clostridium difficile Toxin (PCR) Negative (Negative) Immunoglobulin M 41mg/dL (26-217) Test 10/21/16 07:29 10/21/16 11:53 10/21/16 14:00 Glucose (Fingerstick) 144mg/dL (70-99) 146mg/dL (70-99) Lactic Acid Level 0.6mmol/L (0.4-2.0) Allergies: Coded Allergies: levofloxacin (Verified Allergy, Severe, Hives, 03/07/16) metronidazole (Verified Allergy, Severe, Hives, 03/07/16) Cephalosporins (Verified Allergy, Intermediate, 03/07/16) cephalexin (Verified Allergy, Intermediate, rash, 03/07/16) chlorhexidine (Verified Allergy, Intermediate, rash, 03/07/16) hyaluronic acid (Verified Allergy, Intermediate, 03/07/16) nifedipine (Verified Allergy, Intermediate, edema, 03/07/16) pneumococcal vaccine (Verified Allergy, Intermediate, swelling, 03/07/16) shellfish derived (Verified Allergy, Intermediate, 10/20/16) CARMELA Inhibitors (Verified Adverse Reaction, Intermediate, cough, 03/07/16) clarithromycin (Verified Adverse Reaction, Intermediate, diarrhea, 03/07/16 ) erythromycin base (Verified Adverse Reaction, Intermediate, diarrhea, 03/07) Medications: Current Medications Medications (Trade) Dose Ordered Sig/Froilan Route PRN Reason Start Time Stop Time Status Last Admin Dose Admin Ondansetron HCl (Zofran) 4 mg 1X ONCE IV 10/20/16 16:30 10/20/16 16:31 DC 10/20/16 16:03 Fentanyl Citrate 75 mcg 75 mcg 1X ONCE IV 10/20/16 16:30 10/20/16 16:31 DC 10/20/16 16:05 Sodium Chloride (Iv Sodium Chloride 0.9% 1000ml Bag) 1,000 ml @ 1,000 mls/hr 1X ONCE IV 10/20/16 16:30 10/20/16 17:29 DC 10/20/16 16:03 Iohexol (Omnipaque 300 Mg/ml) 60 ml 1X ONCE IV 10/20/16 17:30 10/20/16 17:31 DC 10/20/16 17:08 Hydromorphone HCl 1 mg 1 mg 1X ONCE IV 10/20/16 17:45 10/20/16 17:46 DC 10/20/16 18:22 Sodium Chloride (Iv Sodium Chloride 0.9% 1000ml Bag) 1,000 ml @ 120 mls/hr Q8H20M IV 10/20/16 18:07 10/21/16 18:06 10/21/16 06:04 Acetaminophen (Tylenol) 1,000 mg PRN Q6HRS PRN PO PAIN 10/20/16 22:00 10/21/16 10:43 Atorvastatin Calcium (Lipitor) 10 mg HS PO 10/20/16 22:00 10/20/16 23:01 Cyclosporine (Restasis) 1 drop BID OU 10/20/16 22:00 10/21/16 08:34 Latanoprost (Xalatan) 1 drop HS OU 10/20/16 22:00 10/20/16 23:01 Montelukast Sodium (Singulair) 10 mg HS PO 10/20/16 22:00 10/20/16 23:01 Pantoprazole Sodium (Protonix) 40 mg DAILYAC PO 10/21/16 07:30 10/21/16 08:34 Famotidine 20 mg 20 mg QHS PO 10/20/16 22:00 10/20/16 23:01 Piperacillin Sod/ Tazobactam Sod/ Sodium Chloride (Zosyn/Iv Sodium Chloride 0.9% 50ml) 50 ml @ 100 mls/hr Q6HRS IV 10/21/16 00:00 10/21/16 12:15 Morphine Sulfate 2 mg PRN Q2HR PRN IV PAIN 10/20/16 22:00 10/21/16 10:40 Ondansetron HCl (Zofran) 4 mg PRN Q6HRS PRN IV NAUSEA/VOMITING 10/20/16 22:00 10/21/16 09:25 DC 10/21/16 04:12 Ondansetron HCl 4 mg 4 mg PRN Q6HRS PRN IV NAUSEA/VOMITING 10/21/16 09:22 10/21/16 10:39 Sodium Chloride (Iv Sodium Chloride 0.9% 1000ml Bag) 1,000 ml @ 100 mls/hr Q10H IV 10/21/16 15:45 10/21/16 15:46 Imaging: Imaging: Acute Abd Series IMPRESSION: No acute abdominal abnormality is detected. CT A/P w/ IV contrast 10/20/16 FINDINGS: Visualized lung bases demonstrate no acute finding. A 5 mm noncalcified nodule is seen within the right lower lobe, with this region on included on the previous CT exam. The liver, spleen, pancreas, adrenal glands and bilateral kidneys demonstrate no focal abnormality. The gallbladder is surgically absent. The GI tract demonstrates no dilated bowel loops to suggest obstruction. Anastomotic bowel suture is seen within the lower abdomen and pelvis. There is circumferential bowel wall thickening involving the ascending colon with minimal adjacent soft tissue stranding. No significant colonic diverticula are seen. The urinary bladder is decompressed and not well evaluated. No intra- abdominal or pelvic free fluid, free air or significant lymphadenopathy is seen. The aorta is normal in caliber. Visualized osseous structures and overlying soft tissues demonstrate no acute interval change. There is some laxity of the anterior abdominal wall inferiorly, with postsurgical scar suggested overlying the right lower quadrant. Degenerative changes present throughout the spine. IMPRESSION: Circumferential wall thickening involving the ascending colon, likely represents colitis. No bowel obstruction, free air or fluid collection. PE: GEN: NAD HEENT: Atraumatic, PERRL LUNGS: CTAB HEART: RRR ABD: BS probably hyperactive, soft, non-distended, RLQ pain w/ deep palpation EXTREMITY: No edema SKIN: No rashes, no jaundice NEURO/PSYCH: A & O 3 A/P: A/P: RLQ pain, diarrhea, fever -onset 10/17, initially thought to be precipitated by eating salad w/ chicken -note recent atbx use for URI -WBC 14.6, CT w/ inflammation in ascending colon, C Diff neg -on IV atbx (Zosyn), ID consult pending, stool culture pending H/o diverticulitis w/ abscess and fistula s/p resection w/ ostomy/takedown -last colonoscopy prior to surgeries in 2014 GERD -controlled w/ PPI, last EGD in 2012 Immunodeficiency w/ low IgG -- D/w Dr. Rushing. Continue antibiotics, supportive care. Await ID recs. MIGNON MARTEL Oct 21, 2016 16:15
[2016-10-21 19:20] VITALS: BP 124/61
[2016-10-21] MEDS ORDERED: ZINC OXIDE 20% TOPICAL OINTMENT 28GM TUBE. TP PRN (21:00)
[2016-10-21] MEDS: ATORVASTATIN CALCIUM 10 MG TABLET. PO SCH (21:27)
[2016-10-21] MEDS: FAMOTIDINE 20 MG TABLET. PO SCH (21:27)
[2016-10-21] MEDS: MONTELUKAST SODIUM 10 MG TABLET. PO SCH (21:27)
[2016-10-21] MEDS: LATANOPROST 0.005% OPHTH SOLUTION 2.5ML BOTTLE. OU SCH (21:27)
[2016-10-21 23:00] VITALS: BP 135/66
[2016-10-22] MEDS: PIPERACILLIN/TAZOBACTAM 3.375 GM in IV NORMAL SALINE 50ML 50 ML IV SCH ×4 (00:07→18:15)
[2016-10-22] MEDS: IV NORMAL SALINE 1000ML BAG 1,000 ML IV SCH ×2 (00:07→18:15)
[2016-10-22 03:56] VITALS: BP 109/64
[2016-10-22] MEDS: LOPERAMIDE 2 MG CAPSULE PO PRN ×3 (05:46→21:30)
[2016-10-22 07:00] VITALS: BP 108/71
[2016-10-22 07:10] LABS: CALCIUM 8.3 mg/dL (8.5-10.1); GFR 57.4; POTASSIUM 3.3 mmol/L (3.5-5.1)
[2016-10-22] MEDS: ALBUTEROL SULFATE 2.5 MG/3 ML NEBU. NEB SCH ×2 (08:00→11:48)
[2016-10-22] MEDS: BUDESONIDE 0.5 MG/2 ML NEBU NEB SCH (08:00)
[2016-10-22 08:27] LABS: BASO # 0.1 x10^3/uL (0.0-0.2); BASO % 1 % (0-3); EOS % 1 % (0-3); HEMATOCRIT 31.1 % (36.0-47.0); HEMOGLOBIN 10.1 g/dL (12.0-15.5); LYMPH # 1.5 x10^3/uL (1.0-4.8); LYMPH % 18 % (24-48); MEAN CORPUSCULAR HEMOGLOBIN 29 pg (25-35); MEAN CORPUSCULAR HGB CONC 32 g/dL (31-37); MEAN CORPUSCULAR VOLUME 89 fL (79-100); MONO % 8 % (0-9); NEUT % 72 % (31-73); PLATELET COUNT 187 x10^3/uL (140-400); RED BLOOD COUNT 3.49 x10^6/uL (3.50-5.40); RED CELL DISTRIBUTION WIDTH 15.1 % (11.5-14.5)
[2016-10-22] MEDS: PANTOPRAZOLE 40 MG TABLET. PO SCH (08:42)
--- NOTE | 2016-10-22 08:49 | PDOC ---
Provider Note Provider Note Onc consult dictated- [id number] H/o IgG Def, received IVIG 2009- 2012. Established with [employer] worker Dr. Tucker Dorado at [facility], IgG levels > 700 in 05/10. F/u planned next week. Unless IgG level returns considerably < 500, would not recommend IVIG as she has not had recurrent infections. Currently improving on current abx and mgt for colitis. PABLO VARGAS DO Oct 22, 2016 08:49
[2016-10-22] MEDS: CETIRIZINE HCL 10 MG TABLET PO SCH (09:00)
--- NOTE | 2016-10-22 09:19 | PDOC ---
Infectious Disease Note ROS ROS GEN: Denies fevers, chills, sweats HEENT: Denies blurred vision, sore throat CV: Denies chest pain RESP: Denies shortness of air, cough GI: Denies n/v/d NEURO: Denies confusion, dizziness MSK: Denies weakness, joint pain/swelling Vital Sign Vital Signs Vital Signs Date Time Temp Pulse Resp B/P Pulse Ox O2 Delivery O2 Flow Rate FiO2 10/22/16 07:00 97.9 90 18 108/71 97 Room Air 97.9 Physical Exam PHYSICAL EXAM GENERAL: NAD, Alert HEENT: PERRL, OC/OP NECK: Supple, no JVD, no LN LUNGS: Clear HEART: S1S2, no gallop, no murmur ABD: Soft, NT, no organomegaly, no rebound EXT: No edema, no cyanosis 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: Alert, oriented x 3, no focal neurologic deficit SKIN: No rash IV: ok Labs Lab Laboratory Tests Test 10/21/16 11:53 10/21/16 14:00 10/21/16 17:42 10/22/16 06:10 Glucose (Fingerstick) 146mg/dL (70-99) 100mg/dL (70-99) Lactic Acid Level 0.6mmol/L (0.4-2.0) White Blood Count 8.0x10^3/uL (4.0-11.0) Red Blood Count 3.49x10^6/uL (3.50-5.40) Hemoglobin 10.1g/dL (12.0-15.5) Hematocrit 31.1% (36.0-47.0) Mean Corpuscular Volume 89fL (79-100) Mean Corpuscular Hemoglobin 29pg (25-35) Mean Corpuscular Hemoglobin Concent 32g/dL (31-37) Red Cell Distribution Width 15.1% (11.5-14.5) Platelet Count 187x10^3/uL (140-400) Neutrophils (%) (Auto) 72% (31-73) Lymphocytes (%) (Auto) 18% (24-48) Monocytes (%) (Auto) 8% (0-9) Eosinophils (%) (Auto) 1% (0-3) Basophils (%) (Auto) 1% (0-3) Neutrophils # (Auto) 5.8x10^3uL (1.8-7.7) Lymphocytes # (Auto) 1.5x10^3/uL (1.0-4.8) Monocytes # (Auto) 0.6x10^3/uL (0.0-1.1) Eosinophils # (Auto) 0.1x10^3/uL (0.0-0.7) Basophils # (Auto) 0.1x10^3/uL (0.0-0.2) Erythrocyte Sedimentation Rate 45 (0-25) Sodium Level 144mmol/L (136-145) Potassium Level 3.3mmol/L (3.5-5.1) Chloride Level 109mmol/L (98-107) Carbon Dioxide Level 22mmol/L (21-32) Anion Gap 13 (6-14) Blood Urea Nitrogen 10mg/dL (7-20) Creatinine 1.0mg/dL (0.6-1.0) Estimated GFR (Cockcroft-Gault) 57.4 Glucose Level 107mg/dL (70-99) Calcium Level 8.3mg/dL (8.5-10.1) Objective Assessment Colitis - seems to be responding to Zosyn Leukocytosis - better Fever -better Abx allergies and intolerances. Tolerated Azithromycin Diet controlled DM h/o CVID Plan Plan of Care Cont Zosyn F/u labs (IgG levels) and cults and results Change to po abx when diet advances Thank you # [id number] AIME HENDERSON MD Oct 22, 2016 09:19
--- NOTE | 2016-10-22 10:49 | PDOC ---
PROGRESS NOTES Chief Complaint Chief Complaint 1. COlitis, ascending colon 2. Diverticular abscess with fistula formation, requiring surgery 2 years ago; common variable immunodeficiency with low IgG; diabetes mellitus, diet controlled; GERD; IBS; glaucoma; osteoarthritis; asthma; anemia. History of Present Illness History of Present Illness better today Still loose stools though last night C diff neg Started on imodium last night - slowing down the loose BM NO more fevers BC prelim is neg WBC down to 8 from 14 Still on liquid diet lactate normal ESR 45 Called lab, IG total and subclass has 2-3 days turn around time PLAn: Adavnce to GI soft Keep NS at 100cc/hr Cont zosyn Heme onc consulted - no IVIG not unless igG < 500 - dw pt IF cont to do good today, home eloisa Vitals Vitals Vital Signs Date Time Temp Pulse Resp B/P Pulse Ox O2 Delivery O2 Flow Rate FiO2 10/22/16 07:00 97.9 90 18 108/71 97 Room Air 97.9 Physical Exam General: Alert, Oriented X3, Cooperative Heart: Regular rate, Normal S1, Normal S2 Lungs: Clear Abdomen: Normal bowel sounds Extremities: No clubbing, No cyanosis Skin: No rashes, No breakdown Labs LABS Laboratory Tests Test 10/21/16 11:53 10/21/16 14:00 10/21/16 17:42 10/22/16 06:10 Glucose (Fingerstick) 146mg/dL (70-99) 100mg/dL (70-99) Lactic Acid Level 0.6mmol/L (0.4-2.0) White Blood Count 8.0x10^3/uL (4.0-11.0) Red Blood Count 3.49x10^6/uL (3.50-5.40) Hemoglobin 10.1g/dL (12.0-15.5) Hematocrit 31.1% (36.0-47.0) Mean Corpuscular Volume 89fL (79-100) Mean Corpuscular Hemoglobin 29pg (25-35) Mean Corpuscular Hemoglobin Concent 32g/dL (31-37) Red Cell Distribution Width 15.1% (11.5-14.5) Platelet Count 187x10^3/uL (140-400) Neutrophils (%) (Auto) 72% (31-73) Lymphocytes (%) (Auto) 18% (24-48) Monocytes (%) (Auto) 8% (0-9) Eosinophils (%) (Auto) 1% (0-3) Basophils (%) (Auto) 1% (0-3) Neutrophils # (Auto) 5.8x10^3uL (1.8-7.7) Lymphocytes # (Auto) 1.5x10^3/uL (1.0-4.8) Monocytes # (Auto) 0.6x10^3/uL (0.0-1.1) Eosinophils # (Auto) 0.1x10^3/uL (0.0-0.7) Basophils # (Auto) 0.1x10^3/uL (0.0-0.2) Erythrocyte Sedimentation Rate 45 (0-25) Sodium Level 144mmol/L (136-145) Potassium Level 3.3mmol/L (3.5-5.1) Chloride Level 109mmol/L (98-107) Carbon Dioxide Level 22mmol/L (21-32) Anion Gap 13 (6-14) Blood Urea Nitrogen 10mg/dL (7-20) Creatinine 1.0mg/dL (0.6-1.0) Estimated GFR (Cockcroft-Gault) 57.4 Glucose Level 107mg/dL (70-99) Calcium Level 8.3mg/dL (8.5-10.1) Review of Systems Review of Systems loose stools, crampy abd, no emesis Assessment and Plan Assessmemt and Plan Problems Medical Problems: (1) Asthma Status: Acute (2) Asthma Status: Acute (3) Colitis Status: Acute (4) Colitis Status: Acute (5) DMII (diabetes mellitus, type 2) Status: Acute (6) GERD (gastroesophageal reflux disease) Status: Acute (7) GERD (gastroesophageal reflux disease) Status: Acute Problems: Comment Review of Relevant I have reviewed the following items corazon (where applicable) has been applied. Labs Laboratory Tests Test 10/20/16 13:50 10/20/16 14:40 10/20/16 16:05 10/20/16 21:08 White Blood Count 14.6x10^3/uL (4.0-11.0) Red Blood Count 4.83x10^6/uL (3.50-5.40) Hemoglobin 13.9g/dL (12.0-15.5) Hematocrit 42.3% (36.0-47.0) Mean Corpuscular Volume 88fL (79-100) Mean Corpuscular Hemoglobin 29pg (25-35) Mean Corpuscular Hemoglobin Concent 33g/dL (31-37) Red Cell Distribution Width 14.8% (11.5-14.5) Platelet Count 274x10^3/uL (140-400) Neutrophils (%) (Auto) 83% (31-73) Lymphocytes (%) (Auto) 10% (24-48) Monocytes (%) (Auto) 6% (0-9) Eosinophils (%) (Auto) 0% (0-3) Basophils (%) (Auto) 1% (0-3) Neutrophils # (Auto) 12.2x10^3uL (1.8-7.7) Lymphocytes # (Auto) 1.5x10^3/uL (1.0-4.8) Monocytes # (Auto) 0.9x10^3/uL (0.0-1.1) Eosinophils # (Auto) 0.1x10^3/uL (0.0-0.7) Basophils # (Auto) 0.1x10^3/uL (0.0-0.2) Sodium Level 141mmol/L (136-145) Potassium Level 4.1mmol/L (3.5-5.1) Chloride Level 102mmol/L (98-107) Carbon Dioxide Level 25mmol/L (21-32) Anion Gap 14 (6-14) Blood Urea Nitrogen 21mg/dL (7-20) Creatinine 1.0mg/dL (0.6-1.0) Estimated GFR (Cockcroft-Gault) 57.4 Glucose Level 113mg/dL (70-99) Calcium Level 9.1mg/dL (8.5-10.1) Total Bilirubin 0.4mg/dL (0.2-1.0) Direct Bilirubin 0.1mg/dL (0.0-0.2) Aspartate Amino Transf (AST/SGOT) 13U/L (15-37) Alanine Aminotransferase (ALT/SGPT) 21U/L (14-59) Alkaline Phosphatase 77U/L (46-116) Troponin I Quantitative < 0.017ng/mL (0.000-0.055) DD-Bjr-E-Type Natriuretic Peptide 28pg/mL (0-124) Total Protein 6.8g/dL (6.4-8.2) Albumin 3.4g/dL (3.4-5.0) Lipase 91U/L (73-393) Urine Collection Type Unknown Urine Color Yellow Urine Clarity Clear Urine pH 6.0 Urine Specific Driscoll >=1.030 Urine Protein >=300mg/dL (NEG-TRACE) Urine Glucose (UA) Negativemg/dL (NEG) Urine Ketones (Stick) 15mg/dL (NEG) Urine Blood Moderate (NEG) Urine Nitrite Negative (NEG) Urine Bilirubin Small (NEG) Urine Urobilinogen Dipstick 0.2mg/dL (0.2 mg/dL) Urine Leukocyte Esterase Negative (NEG) Urine RBC 3-5/HPF (0-2) Urine WBC Occ/HPF (0-4) Urine Squamous Epithelial Cells Few/LPF Urine Bacteria Few/HPF (0-FEW) Urine Hyaline Casts Few/HPF Urine Mucus Mod/LPF Influenza Type A Antigen Negative (NEGATIVE) Influenza Type B Antigen Negative (NEGATIVE) Glucose (Fingerstick) 91mg/dL (70-99) Test 10/21/16 00:45 10/21/16 04:40 10/21/16 07:29 10/21/16 11:53 Clostridium difficile Toxin (PCR) Negative (Negative) Immunoglobulin M 41mg/dL (26-217) Glucose (Fingerstick) 144mg/dL (70-99) 146mg/dL (70-99) Test 10/21/16 14:00 10/21/16 17:42 10/22/16 06:10 Lactic Acid Level 0.6mmol/L (0.4-2.0) Glucose (Fingerstick) 100mg/dL (70-99) White Blood Count 8.0x10^3/uL (4.0-11.0) Red Blood Count 3.49x10^6/uL (3.50-5.40) Hemoglobin 10.1g/dL (12.0-15.5) Hematocrit 31.1% (36.0-47.0) Mean Corpuscular Volume 89fL (79-100) Mean Corpuscular Hemoglobin 29pg (25-35) Mean Corpuscular Hemoglobin Concent 32g/dL (31-37) Red Cell Distribution Width 15.1% (11.5-14.5) Platelet Count 187x10^3/uL (140-400) Neutrophils (%) (Auto) 72% (31-73) Lymphocytes (%) (Auto) 18% (24-48) Monocytes (%) (Auto) 8% (0-9) Eosinophils (%) (Auto) 1% (0-3) Basophils (%) (Auto) 1% (0-3) Neutrophils # (Auto) 5.8x10^3uL (1.8-7.7) Lymphocytes # (Auto) 1.5x10^3/uL (1.0-4.8) Monocytes # (Auto) 0.6x10^3/uL (0.0-1.1) Eosinophils # (Auto) 0.1x10^3/uL (0.0-0.7) Basophils # (Auto) 0.1x10^3/uL (0.0-0.2) Erythrocyte Sedimentation Rate 45 (0-25) Sodium Level 144mmol/L (136-145) Potassium Level 3.3mmol/L (3.5-5.1) Chloride Level 109mmol/L (98-107) Carbon Dioxide Level 22mmol/L (21-32) Anion Gap 13 (6-14) Blood Urea Nitrogen 10mg/dL (7-20) Creatinine 1.0mg/dL (0.6-1.0) Estimated GFR (Cockcroft-Gault) 57.4 Glucose Level 107mg/dL (70-99) Calcium Level 8.3mg/dL (8.5-10.1) Laboratory Tests Test 10/21/16 11:53 10/21/16 14:00 10/21/16 17:42 10/22/16 06:10 Glucose (Fingerstick) 146mg/dL (70-99) 100mg/dL (70-99) Lactic Acid Level 0.6mmol/L (0.4-2.0) White Blood Count 8.0x10^3/uL (4.0-11.0) Red Blood Count 3.49x10^6/uL (3.50-5.40) Hemoglobin 10.1g/dL (12.0-15.5) Hematocrit 31.1% (36.0-47.0) Mean Corpuscular Volume 89fL (79-100) Mean Corpuscular Hemoglobin 29pg (25-35) Mean Corpuscular Hemoglobin Concent 32g/dL (31-37) Red Cell Distribution Width 15.1% (11.5-14.5) Platelet Count 187x10^3/uL (140-400) Neutrophils (%) (Auto) 72% (31-73) Lymphocytes (%) (Auto) 18% (24-48) Monocytes (%) (Auto) 8% (0-9) Eosinophils (%) (Auto) 1% (0-3) Basophils (%) (Auto) 1% (0-3) Neutrophils # (Auto) 5.8x10^3uL (1.8-7.7) Lymphocytes # (Auto) 1.5x10^3/uL (1.0-4.8) Monocytes # (Auto) 0.6x10^3/uL (0.0-1.1) Eosinophils # (Auto) 0.1x10^3/uL (0.0-0.7) Basophils # (Auto) 0.1x10^3/uL (0.0-0.2) Erythrocyte Sedimentation Rate 45 (0-25) Sodium Level 144mmol/L (136-145) Potassium Level 3.3mmol/L (3.5-5.1) Chloride Level 109mmol/L (98-107) Carbon Dioxide Level 22mmol/L (21-32) Anion Gap 13 (6-14) Blood Urea Nitrogen 10mg/dL (7-20) Creatinine 1.0mg/dL (0.6-1.0) Estimated GFR (Cockcroft-Gault) 57.4 Glucose Level 107mg/dL (70-99) Calcium Level 8.3mg/dL (8.5-10.1) Microbiology 10/20/16 Blood Culture - Preliminary, Resulted NO GROWTH AFTER 1 DAY Medications Current Medications Sodium Chloride (Iv Sodium Chloride 0.9% 1000ml Bag) 1,000 ml @ 1,000 mls/hr 1X ONCE IV Last administered on 10/20/16t 13:54; Start 10/20/16 at 13:45; Stop 10/20/16 at 14:44; Status DC Ondansetron HCl (Zofran) 4 mg 1X ONCE IV Last administered on 10/20/16 13:54 ; Start 10/20/16 at 13:45; Stop 10/20/16 at 13:47; Status DC Ondansetron HCl (Zofran) 4 mg 1X ONCE IV Last administered on 10/20/16 16:03 ; Start 10/20/16 at 16:30; Stop 10/20/16 at 16:31; Status DC Fentanyl Citrate 75 mcg 75 mcg 1X ONCE IV Last administered on 10/20/16 16:05 ; Start 10/20/16 at 16:30; Stop 10/20/16 at 16:31; Status DC Sodium Chloride (Iv Sodium Chloride 0.9% 1000ml Bag) 1,000 ml @ 1,000 mls/hr 1X ONCE IV Last administered on 10/20/16 16:03; Start 10/20/16 at 16:30; Stop 10/20/16 at 17:29; Status DC Iohexol (Omnipaque 300 Mg/ml) 60 ml 1X ONCE IV Last administered on 10/20/16 17:08; Start 10/20/16 at 17:30; Stop 10/20/16 at 17:31; Status DC Info (Do NOT chart on this entry -- for MONITORING) 1 each PRN DAILY PRN MC SEE COMMENTS; Start 10/20/16 at 17:15; Stop 10/22/16 at 17:14 Hydromorphone HCl (Dilaudid) 1 mg 1X ONCE IV Last administered on 10/20/16 18 :22; Start 10/20/16 at 17:45; Stop 10/20/16 at 17:46; Status DC Ondansetron HCl (Zofran) 4 mg PRN Q8HRS PRN IV NAUSEA/VOMITING; Start 10/20/16 at 18:15; Stop 10/21/16 at 09:24; Status DC Fentanyl Citrate 75 mcg 75 mcg PRN Q1HR PRN IV PAIN; Start 10/20/16 at 18:15; Stop 10/21/16 at 09:24; Status DC Sodium Chloride (Iv Sodium Chloride 0.9% 1000ml Bag) 1,000 ml @ 120 mls/hr Q8H20M IV Last administered on 10/21/16 06:04; Start 10/20/16 at 18:07; Stop 10/21/16 at 18:06; Status DC Acetaminophen (Tylenol) 650 mg PRN Q4HRS PRN PO FEVER; Start 10/20/16 at 18:15 ; Stop 10/21/16 at 18:14; Status DC Acetaminophen (Tylenol) 1,000 mg PRN Q6HRS PRN PO PAIN Last administered on 10:43; Start 10/20/16 at 22:00 Atorvastatin Calcium (Lipitor) 10 mg HS PO Last administered on 10/20/16 23:01 ; Start 10/20/16 at 22:00 Cyclosporine (Restasis) 1 drop BID OU Last administered on 10/21/16 08:34; Start 10/20/16 at 22:00 Latanoprost (Xalatan) 1 drop HS OU Last administered on 10/20/16 23:01; Start 10/20/16 at 22:00 Montelukast Sodium (Singulair) 10 mg HS PO Last administered on 10/20/16 23:01 ; Start 10/20/16 at 22:00 Pantoprazole Sodium (Protonix) 40 mg DAILYAC PO Last administered on 10/22/16 08:42; Start 10/21/16 at 07:30 Cetirizine HCl (Zyrtec) 10 mg DAILY PO ; Start 10/21/16 at 09:00 Non-Formulary Medication 2 inh BID IH ; Start 10/21/16 at 09:00; Status UNV Non-Formulary Medication 45 mcg DAILY PRN IH SHORTNESS OF BREATH; Start at 22:00; Status UNV Famotidine 20 mg 20 mg QHS PO Last administered on 10/20/16 23:01; Start 10/20 at 22:00 Piperacillin Sod/ Tazobactam Sod/ Sodium Chloride (Zosyn/Iv Sodium Chloride 0.9 % 50ml) 50 ml @ 100 mls/hr Q6HRS IV Last administered on 10/22/16 05:45; Start 10/21/16 at 00:00 Morphine Sulfate 2 mg PRN Q2HR PRN IV PAIN Last administered on 10/21/16 10:40 ; Start 10/20/16 at 22:00 Ondansetron HCl (Zofran) 4 mg PRN Q6HRS PRN IV NAUSEA/VOMITING Last administered on 10/21/16 04:12; Start 10/20/16 at 22:00; Stop 10/21/16 at 09:25 ; Status DC Budesonide (Pulmicort) 0.5 mg RTBID NEB ; Start 10/21/16 at 08:00 Albuterol Sulfate (Ventolin Neb Soln) 2.5 mg RTQID NEB ; Start 10/21/16 at 08:00 Fentanyl Citrate (Fentanyl 2ml Vial) 50 mcg PRN Q2HR PRN IV PAIN; Start at 09:22 Ondansetron HCl (Zofran) 4 mg PRN Q6HRS PRN IV NAUSEA/VOMITING Last administered on 10/21/16 10:39; Start 10/21/16 at 09:22 Acetaminophen/ Hydrocodone Bitart 1 tab 1 tab PRN Q4HRS PRN PO PAIN; Start at 14:30 Sodium Chloride (Iv Sodium Chloride 0.9% 1000ml Bag) 1,000 ml @ 100 mls/hr Q10H IV Last administered on 10/22/16 00:07; Start 10/21/16 at 15:45 Zinc Oxide 1 keily PRN Q4HRS PRN TP SKIN PROTECTION Last administered on 22:13; Start 10/21/16 at 21:00 Loperamide HCl (Imodium) 2 mg PRN Q2HRS PRN PO DIARRHEA Last administered on 09:18; Start 10/22/16 at 04:00 Active Scripts Active Reported Restasis (Cyclosporine) 1 Each Droperette 1 Drop EACHEYE BID Advair Hfa 115-21 Mcg Inhaler (Fluticasone/Salmeterol) 12 Gm Hfa.aer.ad 2 Inh IH BID Acetaminophen 500 Mg Tablet 1,000 Mg PO Q6HRS PRN Protonix (Pantoprazole Sodium) 40 Mg Tablet.dr 40 Mg PO DAILY Fexofenadine Hcl 180 Mg Tablet 180 Mg PO DAILY Xalatan (Latanoprost) 2.5 Ml Drops 1 Drop OP HS Lipitor (Atorvastatin Calcium) 10 Mg Tablet 10 Mg PO HS Xopenex Hfa (Levalbuterol Tartrate) 15 Gm Hfa.aer.ad 45 Mcg IH DAILY PRN Montelukast Sodium Tablet (Montelukast Sodium) 10 Mg Tablet 10 Mg PO HS Zantac (Ranitidine Hcl) 150 Mg Tablet 150 Mg PO QHS Vitals/I & O Vital Sign - Last 24 Hours 10/21/16 10/21/16 10/21/16 10/21/16 11:00 11:14 15:00 19:20 Temp 102.3 98.4 99.3 102.3 98.4 99.3 Pulse 113 95 99 Resp B/P 113/68 121/74 124/61 Pulse Ox 93 99 95 O2 Delivery Room Air Room Air Room Air Room Air 10/21/16 10/21/16 10/22/16 10/22/16 20:00 23:00 03:56 07:00 Temp 98.8 97.9 97.9 98.8 97.9 97.9 Pulse 111 94 90 Resp 18 B/P 135/66 109/64 108/71 Pulse Ox 96 93 97 O2 Delivery Room Air Room Air Room Air Room Air Intake and Output 10/21/16 10/21/16 10/22/16 15:00 23:00 07:00 Intake Total 700 ml 0 ml Balance 700 ml 0 ml PIPO VO MD Oct 22, 2016 10:49
[2016-10-22 10:57] VITALS: BP 114/75
--- NOTE | 2016-10-22 11:29 | PDOC ---
Subjective: Subjective: Better today. Continued green watery stools overnight but less frequent - last 9:30 a.m. Has taken Imodium x 2 - feels helpful. Didn't eat breakfast because another tray of clear liquids was not appealing - plans to try GI soft for lunch. No fever. Pain improved although still some cramping. Objective: Objective: Reviewed primary and ID notes. Tmax 99.3. Note elevated ESR. Vital Signs: Vital Signs Date Time Temp Pulse Resp B/P Pulse Ox O2 Delivery O2 Flow Rate FiO2 10/22/16 10:57 97.9 93 18 114/75 97 Room Air 97.9 Labs: Laboratory Tests Test 10/21/16 11:53 10/21/16 14:00 10/21/16 17:42 10/22/16 06:10 Glucose (Fingerstick) 146mg/dL 100mg/dL Lactic Acid Level 0.6mmol/L White Blood Count 8.0x10^3/uL Red Blood Count 3.49x10^6/uL Hemoglobin 10.1g/dL Hematocrit 31.1% Mean Corpuscular Volume 89fL Mean Corpuscular Hemoglobin 29pg Mean Corpuscular Hemoglobin Concent 32g/dL Red Cell Distribution Width 15.1% Platelet Count 187x10^3/uL Neutrophils (%) (Auto) 72% Lymphocytes (%) (Auto) 18% Monocytes (%) (Auto) 8% Eosinophils (%) (Auto) 1% Basophils (%) (Auto) 1% Neutrophils # (Auto) 5.8x10^3uL Lymphocytes # (Auto) 1.5x10^3/uL Monocytes # (Auto) 0.6x10^3/uL Eosinophils # (Auto) 0.1x10^3/uL Basophils # (Auto) 0.1x10^3/uL Erythrocyte Sedimentation Rate 45 Sodium Level 144mmol/L Potassium Level 3.3mmol/L Chloride Level 109mmol/L Carbon Dioxide Level 22mmol/L Anion Gap 13 Blood Urea Nitrogen 10mg/dL Creatinine 1.0mg/dL Estimated GFR (Cockcroft-Gault) 57.4 Glucose Level 107mg/dL Calcium Level 8.3mg/dL PE: GEN: NAD, up to chair ABD: NABS, S/ND/NT NEURO/PSYCH: A & O 3 A/P: RLQ pain, diarrhea, fever - IMPROVED -onset 10/17 -CT w/ inflammation in ascending colon -WBC now WNL w/o fever, C Diff neg -on Zosyn, ID following, blood cx neg so far -stool culture pending -h/o diverticulitis w/ abscess and fistula s/p resection w/ ostomy/takedown, last colonoscopy prior to surgeries in 2014 -- Better today - less frequent stools w/ Imodium. Plans to advance diet. Dr. Rushing to see this afternoon. MIGNON MARTEL Oct 22, 2016 11:29
[2016-10-22] MEDS ORDERED: ALBUTEROL SULFATE 2.5 MG/3 ML NEBU. NEB PRN (12:15)
[2016-10-22] MEDS ORDERED: BUDESONIDE 0.5 MG/2 ML NEBU NEB PRN (12:15)
[2016-10-22] MEDS: CYCLOSPORINE 0.05% OPTH DROPERETTE. OU SCH ×2 (12:26→21:29)
[2016-10-22 14:43] VITALS: BP 117/67
[2016-10-22 19:34] VITALS: BP 117/68
[2016-10-22] MEDS: LATANOPROST 0.005% OPHTH SOLUTION 2.5ML BOTTLE. OU SCH (21:29)
[2016-10-22] MEDS: MONTELUKAST SODIUM 10 MG TABLET. PO SCH (21:29)
[2016-10-22] MEDS: FAMOTIDINE 20 MG TABLET. PO SCH (21:30)
[2016-10-22] MEDS: ATORVASTATIN CALCIUM 10 MG TABLET. PO SCH (21:30)
[2016-10-22 23:15] VITALS: BP 98/52
[2016-10-23] MEDS: PIPERACILLIN/TAZOBACTAM 3.375 GM in IV NORMAL SALINE 50ML 50 ML IV SCH ×2 (00:04→06:02)
[2016-10-23] MEDS: IV NORMAL SALINE 1000ML BAG 1,000 ML IV SCH (00:04)
[2016-10-23 06:16] LABS: IGG1 246 mg/dL (422-1292); IGG2 200 mg/dL (117-747); IGG3 30 mg/dL (41-129); IGG4 11 mg/dL (1-291); TOTAL IGG 522 mg/dL (700-1600)
[2016-10-23 07:00] VITALS: BP 111/57
[2016-10-23] MEDS: PANTOPRAZOLE 40 MG TABLET. PO SCH (07:50)
--- NOTE | 2016-10-23 07:57 | CONS ---
DATE OF CONSULTATION: 10/22/2016 REFERRING PROVIDER: Dr. Bell. REASON FOR CONSULTATION: IgG deficiency. HISTORY OF PRESENT ILLNESS: The patient is a 56-year-old female whom I saw in clinic in 04/2016 for iron deficiency anemia status post Injectafer in 01/2016 with resolution of her iron deficiency. She has a history of diverticulitis, presenting with a ruptured abscess status post multiple abdominal surgeries in 2014 at [facility] followed by ostomy reversal in 2015. She initially had severe dumping syndrome, which resulted in severe nutritional deficiencies including her iron deficiency. Overall, she has remained stable for the last year. Apparently from 5065-1711, she did receive IgG intermittently; however, she has not been on treatment for a few years for this. She did establish care recently with Dr. Tucker Dorado[facility] She actually has a followup visit there next . She reports that he checked IgG levels on her in April of last year and they were normal at 724. She presented on this hospital admission with recurrent colitis, abdominal pain and fevers. Her CT of the abdomen and pelvis revealed a circumferential thickening around the colon. She has neutrophilia supporting this infectious presentation as well. C. diff testing has been negative. IgG level is pending. PAST MEDICAL HISTORY: Diverticulitis with ruptured abscess status post multiple abdominal surgeries in 2014 followed by dumping syndrome; chronic intermittent diarrhea, which typically can be self-managed; diabetes; arthritis; GERD; irritable bowel syndrome; paroxysmal atrial tachycardia; reported history years ago of IgG deficiency, though it sounds like this has not been a current diagnosis, a recent problem. PAST SURGICAL HISTORY: Multiple abdominal surgeries, ostomy reversal in 2016, hysterectomy, cholecystectomy, bilateral carpal tunnel surgery, heel spur repair, sinus surgery, left meniscectomy. FAMILY HISTORY: Mom had colon cancer, diabetes and hypertension. Dad had lung cancer. Paternal uncle with brain cancer. 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 She denies any tobacco or alcohol use. ALLERGIES: Several allergies are listed and noted per chart review. CURRENT MEDICATIONS: Imodium, zinc, normal saline, Lortab, Zofran, fentanyl, Zyrtec, albuterol, Pulmicort, Protonix, Zosyn, morphine, Pepcid, Singulair, latanoprost, cyclosporine eyedrops, atorvastatin and Tylenol. REVIEW OF SYSTEMS: Ten-point review of systems completed and unremarkable with the exception of recent fevers, fatigue, chills, abdominal pain now improves, diarrhea. PHYSICAL EXAMINATION: VITAL SIGNS: T-max yesterday was 102.3, since 3:00 p.m. yesterday, she has been afebrile. Pulse 90, respiratory rate 18, blood pressure 108/71, 97% O2 on room air. GENERAL: She is alert and oriented. She appears fatigued, but in overall good health with no apparent distress. HEENT: Extraocular muscles are intact. Mucous membranes are moist. CARDIOVASCULAR: Heart is regular in rhythm and rate. LUNGS: Clear to auscultation bilaterally. ABDOMEN: Soft, nontender. EXTREMITIES: No edema. NEUROLOGIC: No focal cranial deficits. IMAGING AND LABORATORY DATA: CT findings reviewed as above. IgG levels are pending. CMP was unremarkable. CBC notable for WBC 14.6, ANC 12.2, increased band count of 22%. C. diff and influenza testing had been negative. Her hemoglobin is actually normal at 13.9. ASSESSMENT AND PLAN: The patient is a 56-year-old female with the following medical problems: 1. History of severe iron deficiency anemia due to decreased absorption. I gave her IV iron in 01/2016 and her iron levels and hemoglobin have remained normal since then. She will continue to follow with me as needed. 2. 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 She has recently followed with an reporting specialist and has followup next week. Her levels in 04/2016 at the time of her last visit were actually very good in the 700s. Repeat level is pending. Unless the level is extremely low, considerably less than 500, I would not recommend giving her IVIG as she has not had ongoing infections requiring repeat hospitalization that would require such treatment to remain healthy. Hopefully , this episode of colitis is an isolated event. 3. Colitis with history of multiple abdominal surgeries previously. She is currently on Zosyn and clinically improving. Thank you for this consultation and allowing me to participate in her care. PABLO VARGAS DO DR: RAMON/keyanna JOB#: [id number] / [id number] YEN
[2016-10-23] MEDS: CETIRIZINE HCL 10 MG TABLET PO SCH (09:00)
--- NOTE | 2016-10-23 09:18 | PDOC ---
Subjective: Subjective: Onc f/u- H/o RUBÉN and IgG Deficiency in 2009, colitis Pt improving, no fevers, able to eat, no vomiting, diarrhea continues but is manageable. Objective: Vital Signs: Vital Signs Date Time Temp Pulse Resp B/P Pulse Ox O2 Delivery O2 Flow Rate FiO2 10/23/16 07:00 98.1 83 16 111/57 97 Room Air 98.1 Physical Exam: Heart: Regular rate Extremities: No edema General: Alert, Oriented X3, Cooperative, No acute distress Lungs: Other (no respiratory distress) Psych/Mental Status: Mental status NL, Mood NL Labs/Imaging: IgG 520 Assessment/Plan A/P: 1. H/o IgG Def, received IVIG 2009- 2012. Established with picker machine operator Dr. Tucker Dorado at [facility], Previously IgG levels > 700 in 05/10. Levels likely mildly decreased now due to active infection but still > 500. F/u planned next week with her picker machine operator. As she is clinically improving and does not have h/ o severe recurrent infections, will hold off on IVIG now. 2. Colitis, improving. 3. H/o Iron def anemia due to decreased absorption requiring IV replacement . Hgb now normal. Will sign off; please call with any questions. S/W Dr. Kramer. PABLO VARGAS DO Oct 23, 2016 09:18
--- NOTE | 2016-10-23 09:27 | PDOC ---
Infectious Disease Note Subjective Subjective Better but has some sinus congestion. + Appetite diarrhea - some better ROS ROS GEN: Denies fevers, chills, sweats HEENT: Denies blurred vision, sore throat CV: Denies chest pain RESP: Denies shortness of air, cough GI: Denies n/v NEURO: Denies confusion, dizziness MSK: Denies weakness, joint pain/swelling Vital Sign Vital Signs Vital Signs Date Time Temp Pulse Resp B/P Pulse Ox O2 Delivery O2 Flow Rate FiO2 10/23/16 07:00 98.1 83 16 111/57 97 Room Air 98.1 Physical Exam PHYSICAL EXAM GENERAL: NAD, Alert, coop HEENT: PERRL, OC/OP- clear NECK: Supple, no JVD, no LN LUNGS: Clear HEART: S1S2, no gallop, no murmur ABD: Soft, NT, no organomegaly, no rebound EXT: No edema, no cyanosis POULTRY PATHOLOGIST: Alert, oriented x 3, no focal neurologic deficit SKIN: No rash IV: ok Objective Assessment Colitis - seems to be responding to Zosyn Leukocytosis - better Fever -better Abx allergies and intolerances. Tolerated Azithromycin Diet controlled DM h/o CVID IgG levels only mildly low likely sec to consumption with acute illness Plan Plan of Care Discont Zosyn Begin Augmentin and add Doxy with sinus for 7 days Home ok if eating and diarrhea controlled D/w Dr. Stroud and Tatiana with AIME CHOWDARY MD Oct 23, 2016 09:27
--- NOTE | 2016-10-23 09:47 | PDOC ---
Subjective: Subjective: Doing better. Eating w/o issue, no abd pain. Diarrhea x 4 this morning before breakfast. Imodium helped yesterday. Ready to DC. Objective: Vital Signs: Vital Signs Date Time Temp Pulse Resp B/P Pulse Ox O2 Delivery O2 Flow Rate FiO2 10/23/16 07:00 98.1 83 16 111/57 97 Room Air 98.1 PE: GEN: NAD ABD: NABS NEURO/PSYCH: A & O 3 A/P: RLQ pain, diarrhea, fever - IMPROVED -onset 10/17 -CT w/ inflammation in ascending colon -WBC now WNL w/o fever, C Diff neg, stool culture pending -ID and heme following -h/o diverticulitis w/ abscess and fistula s/p resection w/ ostomy/takedown, last colonoscopy prior to surgeries in 2014 - FH colon cancer (maternal, paternal), personal h/o polyps (unsure type) -h/o RUBÉN (now lili), h/o IgG deficiency (follow-up w/ immunology next week) -- Improved, stable for release from GI. D/w ID - changing to PO atbx. Discussed OTC probiotics, okay to continue Imodium PRN. Discussed screening colonoscopy in the next year or so considering family history. Follow-up re: diarrhea PRN. MIGNON MARTEL Oct 23, 2016 09:47
[2016-10-23] MEDS: LOPERAMIDE 2 MG CAPSULE PO PRN (09:49)
[2016-10-23] MEDS: CYCLOSPORINE 0.05% OPTH DROPERETTE. OU SCH (09:51)
[2016-10-23] MEDS ORDERED: DOXYCYCLINE HYCLATE 100 MG TABLET PO SCH (10:00)
[2016-10-23] MEDS ORDERED: AMOXICILLIN/K CLAV 875/125MG TABLET. PO SCH (10:00)
[2016-10-23] MEDS ORDERED: DOXY100C2 PO (10:52)
[2016-10-23] MEDS ORDERED: AMOX1TAB61 PO (10:52)
--- NOTE | 2016-10-23 10:58 | PDOC3 ---
Discharge Summary Visit Information Date of Admission: Oct 20, 2016 Date of Discharge: Oct 23, 2016 Admitting Diagnosis Comment: 1. COlitis, ascending colon 2. Diverticular abscess with fistula formation, requiring surgery 2 years ago; common variable immunodeficiency with low IgG; diabetes mellitus, diet controlled; GERD; IBS; glaucoma; osteoarthritis; asthma; anemia. Final Diagnosis Problems Medical Problems: (1) Asthma Status: Acute (2) Asthma Status: Acute (3) Colitis Status: Acute (4) Colitis Status: Acute (5) DMII (diabetes mellitus, type 2) Status: Acute (6) GERD (gastroesophageal reflux disease) Status: Acute (7) GERD (gastroesophageal reflux disease) Status: Acute Brief Hospital Course Allergies Allergies Coded Allergies Type Severity Reaction Last Updated Verified levofloxacin Allergy Severe Hives 03/07/16 Yes metronidazole Allergy Severe Hives 03/07/16 Yes Cephalosporins Allergy Intermediate 03/07/16 Yes cephalexin Allergy Intermediate rash 03/07/16 Yes chlorhexidine Allergy Intermediate rash 03/07/16 Yes hyaluronic acid Allergy Intermediate 03/07/16 Yes nifedipine Allergy Intermediate edema 03/07/16 Yes pneumococcal vaccine Allergy Intermediate swelling 03/07/16 Yes shellfish derived Allergy Intermediate 10/20/16 Yes CARMELA Inhibitors Adverse Reaction Intermediate cough 03/07/16 Yes clarithromycin Adverse Reaction Intermediate diarrhea 03/07/16 Yes erythromycin base Adverse Reaction Intermediate diarrhea 03/07/16 Yes Vital Signs Vital Signs Date Time Temp Pulse Resp B/P Pulse Ox O2 Delivery O2 Flow Rate FiO2 10/23/16 07:00 98.1 83 16 111/57 97 Room Air 98.1 Lab Results Laboratory Tests Test 10/21/16 11:53 10/21/16 14:00 10/21/16 17:42 10/22/16 06:10 Glucose (Fingerstick) 146mg/dL (70-99) 100mg/dL (70-99) Lactic Acid Level 0.6mmol/L (0.4-2.0) White Blood Count 8.0x10^3/uL (4.0-11.0) Red Blood Count 3.49x10^6/uL (3.50-5.40) Hemoglobin 10.1g/dL (12.0-15.5) Hematocrit 31.1% (36.0-47.0) Mean Corpuscular Volume 89fL (79-100) Mean Corpuscular Hemoglobin 29pg (25-35) Mean Corpuscular Hemoglobin Concent 32g/dL (31-37) Red Cell Distribution Width 15.1% (11.5-14.5) Platelet Count 187x10^3/uL (140-400) Neutrophils (%) (Auto) 72% (31-73) Lymphocytes (%) (Auto) 18% (24-48) Monocytes (%) (Auto) 8% (0-9) Eosinophils (%) (Auto) 1% (0-3) Basophils (%) (Auto) 1% (0-3) Neutrophils # (Auto) 5.8x10^3uL (1.8-7.7) Lymphocytes # (Auto) 1.5x10^3/uL (1.0-4.8) Monocytes # (Auto) 0.6x10^3/uL (0.0-1.1) Eosinophils # (Auto) 0.1x10^3/uL (0.0-0.7) Basophils # (Auto) 0.1x10^3/uL (0.0-0.2) Erythrocyte Sedimentation Rate 45 (0-25) Sodium Level 144mmol/L (136-145) Potassium Level 3.3mmol/L (3.5-5.1) Chloride Level 109mmol/L (98-107) Carbon Dioxide Level 22mmol/L (21-32) Anion Gap 13 (6-14) Blood Urea Nitrogen 10mg/dL (7-20) Creatinine 1.0mg/dL (0.6-1.0) Estimated GFR (Cockcroft-Gault) 57.4 Glucose Level 107mg/dL (70-99) Calcium Level 8.3mg/dL (8.5-10.1) Brief Hospital Course Ms. Rojas is a 56 old [sex] who presented with abdominal pain, has hx CVID, follows with [facility]. COlitis on CT, co managed with GI and ID. Was improved on IV zosyn, LActate normal, esr 40s, C diff neg, Tolerating GI soft,. BEtter with immodium, Being dcd on PO doxy and augmentin as per iD. Total IgG was 522 which is down from 700s in 2016,. Since follows closely with [facility] IVIG infusion was deferrred to her plastic surgery specialist - co managed with sofia onc. DispO; home Ff up [facility] plastic surgery specialist Consults: ID, GI, heme onc Pt seen and examined Proc; none Discharge Information Condition at Discharge: Improved, Stable Follow Up: Weeks (plastic surgery specialist) Disposition/Orders: D/C to Home Scheduled Atorvastatin Calcium (Lipitor) 10 MG PO HS (Reported) Cyclosporine (Restasis) 1 DROP EACHEYE BID (Reported) Fexofenadine Hcl (Fexofenadine Hcl) 180 MG PO DAILY (Reported) Fluticasone/Salmeterol (Advair Hfa 115-21 Mcg Inhaler) 2 INH IH BID (Reported) Latanoprost (Xalatan) 1 DROP OP HS (Reported) Montelukast Sodium (Montelukast Sodium Tablet) 10 MG PO HS (Reported) Pantoprazole Sodium (Protonix) 40 MG PO DAILY (Reported) Ranitidine Hcl (Zantac) 150 MG PO QHS (Reported) Scheduled PRN Acetaminophen (Acetaminophen) 1,000 MG PO Q6HRS PRN PRN PAIN (Reported) Levalbuterol Tartrate (Xopenex Hfa) 45 MCG IH DAILY PRN PRN SHORTNESS OF BREATH (Reported) PIPO VO MD Oct 23, 2016 10:58
[2016-10-23 11:00] VITALS: BP 117/72
--- NOTE | 2016-10-23 11:11 | CONS ---
DATE OF CONSULTATION: 10/22/2016 ROOM: 668. REQUESTING PHYSICIAN: Dr. Raymond. REASON FOR CONSULTATION: Fever, leukocytosis. HISTORY OF PRESENT ILLNESS: The patient is a 56-year-old female with history of diet-controlled diabetes. Also, has a history common variable immunodeficiency, was not able to receive any IVIG since 2012. Towards the end of August, she states she had an upper respiratory infection, was treated with 10 days of Augmentin. This improved; however, she subsequently suffered from influenza and was treated with Tamiflu. Last , she states she ate some salad that was brought in by somebody from [facility]. About 3 hours later, she began having nausea, vomiting and diarrhea. This persisted into the weekend. She had fevers up to 102.3. She has had a history of previous diverticular abscess and so she presented to [facility] on the evening of the . She had a white blood cell count of 14.6 and she was placed on Zosyn. She underwent a CT scan of the abdomen and pelvis which showed circumferential wall thickening involving the ascending colon and likely this now represents colitis. She had a C. diff that was collected on the that was negative. Influenza screen was negative as well. Urinalysis was not consistent with urinary tract infection. Blood cultures were obtained. I was consulted yesterday afternoon. I spoke with the nurse, reviewed the case, seemed to be improving, so Zosyn was continued. This morning, the patient states that she is feeling better. She would like to have her diet advanced if possible. No current headaches or sinus issues. The fever has improved. No sore throat or cough. She is still having some loose stools. No dysuria, frequency or urgency. Denies any blood in her stool. No rashes. PAST MEDICAL HISTORY: Positive for previous diverticulitis and diverticulitis abscess, history of hypertension and gastroesophageal reflux disease, irritable bowel, diabetes is diet controlled, common variable immune deficiency. PAST SURGICAL HISTORY: Positive for colectomy with diverting ileostomy, cholecystectomy, hysterectomy. REVIEW OF SYSTEMS: Otherwise negative except for mentioned above. ALLERGIES: LISTED TO CEPHALOSPORINS AND KEFLEX THAT CAUSED A RASH. BIAXIN IS LISTED, BUT SHE HAS TOLERATED AZITHROMYCIN. LEVOFLOXACIN AND FLAGYL, SHE HAD TAKEN AT THE SAME TIME. SHE DEVELOPED A WHEEZING AND A RASH AT THE SAME TIME AND WAS UNCERTAIN WHICH ANTIBIOTIC WAS CAUSING IT, BUT IS NOT INTERESTED IN TRYING EITHER ONE. 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 No toxic habits. FAMILY HISTORY: Positive for diabetes. PHYSICAL EXAMINATION: VITAL SIGNS: T-max is 102.3, currently 97.9, pulse 90, respirations 18, blood pressure 108/71, satting 97% on room air. CONSTITUTIONAL: She is very pleasant. She is cooperative. She is in no acute distress. She is sitting upright in bed. She wears glasses. HEENT: Pupils are equal and reactive. Oral cavity, pharynx is clear. NECK: Supple, no JVD. LUNGS: Clear to auscultation bilaterally. HEART: S1, S2. ABDOMEN: Soft, nontender. No guarding. No rebound. She has no CVA tenderness. EXTREMITIES: Without clubbing, cyanosis or gross edema. SKIN: Warm to touch without signs of rash. NEUROLOGIC: She is nonfocal and appropriate. PSYCHIATRIC: Affect is appropriate. LABORATORY DATA: White count today 8, hemoglobin 10.1, platelets 187 with 72 segs, 18 lymphs. Sed rate 45. Creatinine 1, glucose 107. Normal liver function study tests and lipase on arrival. Urinalysis is negative. IgG levels are pending. Influenza A and C. diff are negative. CAT scan reviewed in history of present illness. IMPRESSION: 1. Colitis, seems to be responding to Zosyn. 2. Leukocytosis that is better. 3. Fever, that is better. 4. Antibiotic allergies and tolerances. She has tolerated azithromycin. 5. Diet-controlled diabetes. 6. History of common variable immune deficiency diseases. RECOMMENDATIONS: For now, continue the Zosyn. We will follow up on labs, IgG levels are pending. Follow up on cultures and results and change to p.o. antibiotics when diet advances. Thank you for allowing me to participate in the patient's care. If you have any questions, please do not hesitate to contact me. AIME HENDERSON MD DR: BRANDEN/keyanna JOB#: [id number] / [id number]
== END 2016-10-23 13:15 | disposition home or self-care (01) | DRG 392 ==
LOC: ER 13:07 → 6 SOUTH 18:00
PROVIDERS: ADMIT Internal Medicine Hematology & Oncology; ATTEND Internal Medicine Hematology & Oncology
DX: A09 Infectious gastroenteritis and colitis, unspecified (principal); K50.10 Crohn's disease of large intestine without complications; D83.9 Common variable immunodeficiency, unspecified; D80.3 Selective deficiency of immunoglobulin G [IgG] subclasses; I47.1 Supraventricular tachycardia; D50.9 Iron deficiency anemia, unspecified; E11.9 Type 2 diabetes mellitus without complications; E66.9 Obesity, unspecified; H40.9 Unspecified glaucoma; J45.909 Unspecified asthma, uncomplicated; K21.9 Gastro-esophageal reflux disease without esophagitis; G56.03 Carpal tunnel syndrome, bilateral upper limbs; K91.1 Postgastric surgery syndromes; M19.90 Unspecified osteoarthritis, unspecified site; Z80.0 Family history of malignant neoplasm of digestive organs; Z80.1 Family history of malignant neoplasm of trachea, bronchus and lung; Z80.8 Family history of malignant neoplasm of other organs or systems; Z82.49 Family history of ischemic heart disease and other diseases of the circulatory system; Z83.3 Family history of diabetes mellitus; Z85.038 Personal history of other malignant neoplasm of large intestine; Z88.1 Allergy status to other antibiotic agents; Z90.49 Acquired absence of other specified parts of digestive tract; Z90.710 Acquired absence of both cervix and uterus; Z68.32 Body mass index [BMI] 32.0-32.9, adult; Z88.7 Allergy status to serum and vaccine; Z88.8 Allergy status to other drugs, medicaments and biological substances; Z91.013 Allergy to seafood; D64.9 Anemia, unspecified
CPT/HCPCS: 36415; 74022; 74177; 80048; 80076; 81001; 82784; 82787; 82947; 83605; 83690; 83880; 84484; 85027; 85651; 87040; 87324; 87804; 96361; 96374; 96375; J1170; J2270; J2405; J2543; J3010; J7030; Q9967; 99285-25

== ENCOUNTER 2016-12-16 13:06 | Inpatient (IN) | payer OTHER ==
[~2016-12-16] VITALS: Ht 162.6 cm; Wt 88.5 kg
[~2016-12-16 13:06] MED LIST changes: +AMOX1TAB61 PO; +CYCL1DRO EACHEYE; +DOXY100C2 PO
[2016-12-16 14:27] LABS: BASO # 0.1 x10^3/uL (0.0-0.2); BASO % 1 % (0-3); EOS % 0 % (0-3); HEMATOCRIT 42.8 % (36.0-47.0); LYMPH # 1.4 x10^3/uL (1.0-4.8); LYMPH % 8 % (24-48); MEAN CORPUSCULAR HEMOGLOBIN 29 pg (25-35); MEAN CORPUSCULAR HGB CONC 33 g/dL (31-37); MEAN CORPUSCULAR VOLUME 88 fL (79-100); MONO % 4 % (0-9); NEUT % 87 % (31-73); PLATELET COUNT 307 x10^3/uL (140-400); RED BLOOD COUNT 4.88 x10^6/uL (3.50-5.40); RED CELL DISTRIBUTION WIDTH 15.7 % (11.5-14.5); WHITE BLOOD COUNT 17.1 x10^3/uL (4.0-11.0)
[2016-12-16] MEDS ORDERED: ONDANSETRON PF 4 MG/2 ML VIAL. IV ONE (14:30)
[2016-12-16] MEDS ORDERED: IOHEXOL 300 MG/ML 75 ML VIAL IV ONE (14:45)
[2016-12-16] MEDS ORDERED: HYDROmorphone 2 MG/ML VIAL IV ONE ×2 (14:45→16:30)
[2016-12-16] MEDS ORDERED: IV NORMAL SALINE 1000ML BAG 1,000 ML IV ONE (14:45)
[2016-12-16] MEDS ORDERED: CONTRAST GIVEN MC PRN (14:45)
[2016-12-16 14:46] LABS: CALCIUM 9.7 mg/dL (8.5-10.1); CREATININE 0.9 mg/dL (0.6-1.0); GFR 64.8; POTASSIUM 4.3 mmol/L (3.5-5.1)
--- NOTE | 2016-12-16 14:47 | EKG ---
[facility] [address] [place] [address] Test Date: 2016-12-16 Test Time: 13:46:33 Pat Name: ANY SAXENA Department: Room: Gender: F Underground Supervisor: : 1960 Requested By: JOSE DANIEL ROYAL Order Number: [id number] Reading MD: Albert Gonzalez Measurements Intervals [place] Rate: 108 P: 43 MS: 126 QRS: 41 QRSD: 84 T: 11 QT: 338 QTc: 457 Interpretive Statements SINUS TACHYCARDIA Electronically Signed On 12-17-2016 15:53:08 CDT by Albert Gonzalez
[2016-12-16 14:55] LABS: ALBUMIN 4.2 g/dL (3.4-5.0); ALBUMIN/GLOBULIN RATIO 1.1 (1.0-1.7); TOTAL BILIRUBIN 0.6 mg/dL (0.2-1.0); TOTAL PROTEIN 8.2 g/dL (6.4-8.2)
--- NOTE | 2016-12-16 15:30 | PHYS DOC ---
Past Medical History Past Medical History: Anemia, Arthritis, Asthma, Diabetes-Type II, Diverticulitis, GERD, Glaucoma, IBS, Other Additional Past Medical Histor: diverticular abscess, lumbar facet arthropathy , colitis Past Surgical History: Cholecystectomy, Colectomy, Hysterectomy, Other Additional Past Surgical Histo: CARPAL TUNNEL, POLYPECTOMY, NASAL, R SHOULDER, ILEOSTOMY Alcohol Use: Rarely Drug Use: None Adult General Chief Complaint Chief Complaint: ABDOMINAL PAIN HPI HPI 66 year old female is having significant right lower quadrant pain that she noted throughout the day was multiple episodes of nausea and vomiting. Patient states she has history of sigmoid colectomy secondary to recurrent diverticulitis with abscess formation. Patient was recently admitted several weeks ago for an ascending colitis that resolved with admission and antibiotics. She states her symptoms today are significantly worse and different than her previous symptoms. She has subjective fever and chills. She appears in moderate distress upon my initial evaluation. She is afebrile upon arrival. Review of Systems Review of Systems Constitutional: Denies fever or chills [] Eyes: Denies change in visual acuity, redness, or eye pain [] HENT: Denies nasal congestion or sore throat [] Respiratory: Denies cough or shortness of breath [] Cardiovascular: No additional information not addressed in HPI [] GI: Has abdominal pain, has nausea, has vomiting, denies bloody stools or diarrhea [] : Denies dysuria or hematuria [] Musculoskeletal: Denies back pain or joint pain [] Integument: Denies rash or skin lesions [] Neurologic: Denies headache, focal weakness or sensory changes [] Endocrine: Denies polyuria or polydipsia [] Current Medications Current Medications Allergies Allergies Allergies Coded Allergies Type Severity Reaction Last Updated Verified levofloxacin Allergy Severe Hives 03/07/16 Yes metronidazole Allergy Severe Hives 03/07/16 Yes Cephalosporins Allergy Intermediate 03/07/16 Yes cephalexin Allergy Intermediate rash 03/07/16 Yes chlorhexidine Allergy Intermediate rash 03/07/16 Yes hyaluronic acid Allergy Intermediate 03/07/16 Yes nifedipine Allergy Intermediate edema 03/07/16 Yes pneumococcal vaccine Allergy Intermediate swelling 03/07/16 Yes shellfish derived Allergy Intermediate 10/20/16 Yes CARMELA Inhibitors Adverse Reaction Intermediate cough 03/07/16 Yes clarithromycin Adverse Reaction Intermediate diarrhea 03/07/16 Yes erythromycin base Adverse Reaction Intermediate diarrhea 7/14/16 Yes Physical Exam Physical Exam Constitutional: Well developed, well nourished, no acute distress, non-toxic appearance. [] HENT: Normocephalic, atraumatic, bilateral external ears normal, oropharynx moist, no oral exudates, nose normal. [] Eyes: PERRLA, EOMI, conjunctiva normal, no discharge. [] Neck: Normal range of motion, no tenderness, supple, no stridor. [] Cardiovascular:Heart rate regular rhythm, no murmur [] Lungs & Thorax: Bilateral breath sounds clear to auscultation [] Abdomen: Bowel sounds normal, soft, no tenderness, no masses, no pulsatile masses. [] Skin: Warm, dry, no erythema, no rash. [] Back: No tenderness, no CVA tenderness. [] Extremities: No tenderness, no cyanosis, no clubbing, ROM intact, no edema. [] Neurologic: Alert and oriented X 3, normal motor function, normal sensory function, no focal deficits noted. [] Psychologic: Affect normal, judgement normal, mood normal. [] Current Patient Data Vital Signs Vital Signs Date Time Temp Pulse Resp B/P Pulse Ox O2 Delivery O2 Flow Rate FiO2 12/16/16 13:17 98.4 118 18 187/107 98 Room Air 98.4 Lab Values EKG EKG EKG as interpreted by me shows a sinus tachycardia with a rate of 108 bpm there are no obvious ischemic findings. There is a T-wave inversion to lead 3 no other significant findings. Radiology/Procedures Radiology/Procedures CT abdomen and pelvis with IV contrast History: Right lower quadrant pain, nausea and vomiting, history of sigmoid colonic resection diverticulosis. Comparison: None. Technique: After administration of intravenous contrast, 75 mL Omnipaque 300, helical CT of the abdomen and pelvis was performed from the lung bases through the ischial tuberosities. Axial, sagittal, and coronal reconstructions were obtained. One or more of the following individualized dose reduction techniques were utilized for the study: Automated exposure control Adjustment of mA and/or kV according to patient's size Use of iterative reconstruction technique. Findings: Evaluation of enteric structures may be limited by lack of oral contrast. Fatty liver disease is seen. Gallbladder is absent. Spleen, pancreas, and bilateral adrenal glands are unremarkable. Bilateral kidneys enhance symmetrically. No free air is identified in the abdomen or pelvis. Uterus is absent. Urinary bladder is unremarkable. There are postsurgical changes are seen involving the rectosigmoid junction, compatible with previous resection. Colonic diverticulosis is noted, but no diverticulitis is seen. There also appears to be suture material involving discontinuous of loops of bowel in the pelvis which are favored to represent ileum. There are dilated loops of small bowel measuring up to 3.3 cm in diameter. There is a loop of small bowel, thought to be ileum, containing fecaloid material. This dilated loop appears adjacent to surgical suture and is favored to represent obstruction at anastomotic site. The loop of the affected small bowel demonstrates mild wall thickening as well as mild adjacent fat stranding, compatible with acute inflammation. There is a small amount of free fluid present in the pelvis, favored to be sympathetic to the inflammatory change and small bowel obstruction. Impression: 1. Post surgical changes are seen, thought to involve both the rectosigmoid junction as well as the distal small bowel. 2. There is small bowel dilatation, thought to involve the ileum adjacent to ileoileal anastomotic site. Findings are thought to represent a small bowel obstruction secondary to anastomotic stricture. 3. The affected of a loop of the ileum also demonstrates evidence of mild inflammation. Small amount of sympathetic inflammatory free fluid is present in the pelvis. Course & Med Decision Making Course & Med Decision Making Pertinent Labs and Imaging studies reviewed. (See chart for details) This pleasant 56-year-old female sniffed a right lower quadrant pain off laboratory workup including a CT of her abdomen and pelvis to rule out an acute cause her symptoms. At this time her white count is elevated. We'll rule out an acute surgical cause with her CT scan and will likely admit her as she is set to follow-up with GI for possible colonoscopy in light of her recent symptoms. 66-year-old female will be admitted to the hospital as she has a CT scan that is concerning for possible small bowel obstruction and as well as significant inflammatory changes seen in the ileum and small bowel. A dose of IV Zosyn was ordered and administered. Patient is continually given doses of Dilaudid as needed for pain as well as IV fluids. I discussed the case with the surgeon, Dr. Arreola, who came down at bedside to discuss and assess the patient and agreed with this plan. Her white count is significant only elevated but she does not have an elevated lactate. I discussed the need to admit the patient for her CT findings and continued abdominal pain with the hospitalist, Dr. Guevara, who agreed to accept the patient for further evaluation treatment. Dragon Disclaimer Dragon Disclaimer This electronic medical record was generated, in whole or in part, using a voice recognition dictation system. Departure Departure Impression: Primary Impression: Abdominal pain Additional Impression: SBO (small bowel obstruction) Disposition: ADMITTED INPATIENT Admitting Physician: Carlos Guevara Condition: STABLE Referrals: JOSR SHARMA MD (PCP) Problem Qualifiers JOSE DANIEL ROYAL DO Dec 16, 2016 15:29
--- NOTE | 2016-12-16 15:40 | RAD ---
CT abdomen and pelvis with IV contrast History: Right lower quadrant pain, nausea and vomiting, history of sigmoid colonic resection diverticulosis. Comparison: None. Technique: After administration of intravenous contrast, 75 mL Omnipaque 300, helical CT of the abdomen and pelvis was performed from the lung bases through the ischial tuberosities. Axial, sagittal, and coronal reconstructions were obtained. One or more of the following individualized dose reduction techniques were utilized for the study: Automated exposure control Adjustment of mA and/or kV according to patient's size Use of iterative reconstruction technique. Findings: Evaluation of enteric structures may be limited by lack of oral contrast. Fatty liver disease is seen. Gallbladder is absent. Spleen, pancreas, and bilateral adrenal glands are unremarkable. Bilateral kidneys enhance symmetrically. No free air is identified in the abdomen or pelvis. Uterus is absent. Urinary bladder is unremarkable. There are postsurgical changes are seen involving the rectosigmoid junction, compatible with previous resection. Colonic diverticulosis is noted, but no diverticulitis is seen. There also appears to be suture material involving discontinuous of loops of bowel in the pelvis which are favored to represent ileum. There are dilated loops of small bowel measuring up to 3.3 cm in diameter. There is a loop of small bowel, thought to be ileum, containing fecaloid material. This dilated loop appears adjacent to surgical suture and is favored to represent obstruction at anastomotic site. The loop of the affected small bowel demonstrates mild wall thickening as well as mild adjacent fat stranding, compatible with acute inflammation. There is a small amount of free fluid present in the pelvis, favored to be sympathetic to the inflammatory change and small bowel obstruction. Impression: 1. Post surgical changes are seen, thought to involve both the rectosigmoid junction as well as the distal small bowel. 2. There is small bowel dilatation, thought to involve the ileum adjacent to ileoileal anastomotic site. Findings are thought to represent a small bowel obstruction secondary to anastomotic stricture. 3. The affected of a loop of the ileum also demonstrates evidence of mild inflammation. Small amount of sympathetic inflammatory free fluid is present in the pelvis.
[2016-12-16] MEDS ORDERED: PIP/TAZO PER PHARMACY MC PRN (16:00)
[2016-12-16] MEDS ORDERED: FENTANYL PF 100 MCG/2 ML VIAL. IV PRN (16:00)
[2016-12-16] MEDS ORDERED: PIPERACILLIN/TAZOBACTAM 3.375 GM in IV NORMAL SALINE 50ML 50 ML IV ONE (16:00)
[2016-12-16 16:38] LABS: % BASOS 1 % (0-3)
[2016-12-16 16:39] LABS: PLT ESTIMATE ADEQUATE (ADEQUATE)
[2016-12-16 16:40] LABS: OVALOCYTES OCC; SCHISTOCYTES OCC
--- NOTE | 2016-12-16 17:43 | ACF ---
Admission Forms Criteria ABDOMINAL PAIN Clinical Indications for Admission to Inpatient Care (Place 'X' for any and all applicable criteria): Admission is indicated for ANY ONE of the following(1)(2)(3)(4)(5): [X]I. Inpatient admission required rather than observation care (Also use Abdominal Pain: Observation Care, as appropriate) because of ANY ONE of the following: [X]a) Severe pain requiring acute inpatient management [X]b) Identification of etiology/finding that requires inpatient care (eg, aortic dissection, free air) [ ]c) Absent bowel sounds with complete ileus(6) [ ]d) Suspected toxic megacolon [ ]e) Severe electrolyte abnormalities requiring inpatient care [ ]f) High fever or infection requiring inpatient admission as indicated by ANY ONE of following(7)(8): [ ] i) Appropriate outpatient or observational care antimicrobial treatment unavailable, not effective, or not feasible [ ] ii) Documented bacteremia [ ] iii) Temperature > 104.9 degrees F (oral) [ ] iv) T >103.1 F (oral) or < 96.8 F(rectal) that does not respond to all emergency treatment measures [ ]g) Signs of intestinal obstruction [B] [ ]h) Hemodynamic instability [ ]i) IV fluid to replace significant ongoing losses (greater than 3 L/m2 per day) (12)(13) [ ]j) Percutaneous or open drainage (eg, abscess, biliary tract ) procedures [ ]k) Parenteral nutrition regimen that must be implemented on inpatient basis [ ]l) Other condition,treatment or monitoring requiring inpatient admission. [ ]II. Peritoneal signs present [ ]III. Surgery needed that cannot be performed on an ambulatory basis. [ ]IV. Evaluation requires patient to not eat or drink for extended period ( eg, more than 24 hours). [ ]V. Contraindications and/or Inappropriate clinical situations for Observational Care in patients with abdominal pain, when ANY ONE of the following is required: [ ]a) Thorough evaluation is required to prevent catastrophic events due to delays in diagnosing (e.g.Mesenteric ischemia) 1,3 [ ]b) Patient with severe pathology or with chronic symptoms unlikely to improve in the ED stay (3) [ ]. General contraindications and/or Inappropriate clinical situations for Observational Care in patients with abdominal pain, when ANY ONE of the following is required: [ ]a) Prediction of prolongation of LOS based on ANY ONE of the following may be considered as a contraindication for observational care 2, 3, 4, 5, 6, 7, 8, 9, 10, 11 [ ]i) Age > 65 yrs. [ ]ii) Patient arriving by ambulance [ ]iii) Patient with high acuity [ ]iv) Patient requiring vital sign monitoring [ ]v) Patient on IV medication [ ]b) Systolic blood pressures 180mmHg 3,12 [ ]c) Patient with altered mental status including delirium and other alteration of consciousness, (3) [ ]d) Patient whose discharge disposition will be to a snf home or rehabilitation home should not be managed in Emergency Department Observation Unit. CMS rule requires 3 days hospital stay before such placement.3,13 [ ]e) Patient with failure to thrive due to broad array of etiologies 3,16,17 [ ]f) Inability to ambulate 3,14 Extended stay beyond goal length of stay may be needed for(2)(3): [ ]a) Persistent abdominal pain with suspected intra-abdominal process [ ]b) Diagnosed condition requiring continued stay (e.g., pancreatitis, complicated diverticulitis) [ ]c) Surgery (e.g., colectomy) The original [facility] content created by [employer] has been revised. The portions of the content which have been revised are identified through the use of italic text or in bold, and [facility] has neither reviewed nor approved the modified material.All other unmodified content is copyright [employer]. Please see references footnoted in the original [facility] edition 2016 Admission Criteria Met?: Yes ZAC LUCAS Dec 16, 2016 17:43
[2016-12-16 18:04] LABS: BILIRUBIN,URINE NEGATIVE (NEG); GLUCOSE,URINE NEGATIVE (NEG); NITRITE,URINE NEGATIVE (NEG); PROTEIN,URINE NEGATIVE (NEG-TRACE); UROBILINOGEN,URINE 0.2 mg/dL (0.2 mg/dL)
[2016-12-16 18:11] LABS: BACTERIA,URINE 0 /HPF (0-FEW); RBC,URINE 0 /HPF (0-2); SQUAMOUS EPITHELIAL CELL,UR FEW /LPF; WBC,URINE OCC /HPF (0-4)
[2016-12-16] MEDS: ONDANSETRON PF 4 MG/2 ML VIAL. IV PRN (18:35)
[2016-12-16 18:50] VITALS: BP 128/84
[2016-12-16] MEDS ORDERED: PROCHLORPERAZINE 10 MG/2 ML VIAL. IV PRN (20:00)
[2016-12-16] MEDS: HYDROmorphone 2 MG/ML VIAL IV PRN (20:45)
[2016-12-16] MEDS: AA 3%/ELECTROLYTE-TPN SOLN/GLY 1,000 ML IV SCH (20:45)
[2016-12-16] MEDS ORDERED: LEVALBUTEROL TARTRATE 45 MCG IH PRN (23:00)
[2016-12-16] MEDS ORDERED: LATANOPROST 0.005% OPHTH SOLUTION 2.5ML BOTTLE. OU SCH (23:00)
[2016-12-16] MEDS: PIPERACILLIN/TAZOBACTAM 3.375 GM in IV NORMAL SALINE 50ML 50 ML IV SCH (23:18)
[2016-12-16 23:33] VITALS: BP 121/71
--- NOTE | 2016-12-17 00:54 | HP ---
ADMIT DATE: 12/16/2016 CHIEF COMPLAINT: Abdominal pain. 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 Basically, she presents with abdominal pain and intractable nausea. She has a complex history. 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 She had several procedures including sigmoid colectomy, she had temporary ileostomy, which has now been reduced. Today, once again, she presents with abdominal pain and nausea and we suspect she probably got an obstruction effect. Imaging has shown obstruction, perhaps she has got adhesion. I have discussed the case with the ER physician. We are going to admit the patient, consult Dr. Arreola. PAST MEDICAL HISTORY: The above-mentioned complex series of events from her diverticulitis which perforated and she ended up with an ostomy and she had a fistula into the bladder, anemia, arthritis, glaucoma, asthma, diabetes, diverticulitis, GERD, irritable bowel syndrome, IgG deficiency, lumbar facet arthroplasty, cholecystectomy, sigmoid colectomy, hysterectomy, carpal tunnel surgery, right shoulder surgery, ileostomy with take down, nasal surgery. ALLERGIES: CARMELA INHIBITORS, CEPHALOSPORINS, CHLORHEXIDINE, CLARITHROMYCIN, ERYTHROMYCIN, LEVAQUIN, METRONIDAZOLE, NIFEDIPINE, PNEUOMOCOCCAL VACCINE, SHELLFISH. FAMILY HISTORY: Hypertension. SOCIAL HISTORY: She does not drink, smoke or take drugs. 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 MEDICATIONS: Reviewed, please refer to the MRAD. REVIEW OF SYSTEMS: GENERAL: No history of weight change, weakness or fevers. SKIN: No bruising, hair changes or rashes. EYES: No blurred, double or loss of vision. NOSE AND THROAT: No history of nosebleeds, hoarseness or sore throat. HEART: No history of palpitations, chest pain or shortness of breath on exertion. LUNGS: Denies cough, hemoptysis, wheezing or shortness of breath. GASTROINTESTINAL: Complains of nausea. No abdominal pain. GENITOURINARY: No history of frequency, urgency, hesitancy or nocturia. NEUROLOGIC: Denies history of numbness, tingling, tremor or weakness. PSYCHIATRIC: No history of panic, anxiety or depression. ENDOCRINE: No history of heat or cold intolerance, polyuria or polydipsia. EXTREMITIES: Denies muscle weakness, joint pain, pain on walking or stiffness. PHYSICAL EXAMINATION: VITAL SIGNS: Temperature afebrile, pulse 84, respirations 20, blood pressure 128/89, O2 sat 97%. GENERAL: She is alert, cooperative, seems to be a little down about being in the hospital, but very pleasant and cooperative. HEART: Normal S1, S2. LUNGS: Clear. ABDOMEN: Soft. Decreased bowel sounds, tender. There are some old incisions that have healed, but there is a lot of ____ scars. EXTREMITIES: No edema. PSYCHIATRIC: She seems a little down. ENDOCRINE: No thyromegaly. LYMPHATICS: No cervical nodes. HEMATOPOIETIC: No bruising. LABORATORY DATA: White count 17, hemoglobin 14, platelets 307. Electrolytes normal other than a glucose of 134. Troponin is 0. CT abdomen showing obstruction. Urinalysis is negative. ASSESSMENT AND PLAN: Small-bowel obstruction with leukocytosis in a middle-aged female with the above noted comorbidities. We are going to start empiric IV Zosyn. Consult Dr. Arreola. IV fluids, p.r.n. antiemetics. I started a lot of her home meds, but held p.o. ones or changed them to IV if possible. Frequent labs. STEFFEN JOE DO DR: CB/keyanna JOB#: [id number] / [id number]
[2016-12-17 03:18] VITALS: BP 127/63
[2016-12-17] MEDS: ONDANSETRON PF 4 MG/2 ML VIAL. IV PRN (03:56)
[2016-12-17 06:01] LABS: BASO # 0.1 x10^3/uL (0.0-0.2); BASO % 0 % (0-3); EOS % 1 % (0-3); HEMATOCRIT 38.9 % (36.0-47.0); HEMOGLOBIN 12.9 g/dL (12.0-15.5); LYMPH # 1.4 x10^3/uL (1.0-4.8); LYMPH % 9 % (24-48); MEAN CORPUSCULAR HEMOGLOBIN 29 pg (25-35); MEAN CORPUSCULAR HGB CONC 33 g/dL (31-37); MEAN CORPUSCULAR VOLUME 87 fL (79-100); MONO % 6 % (0-9); NEUT % 85 % (31-73); PLATELET COUNT 278 x10^3/uL (140-400); RED BLOOD COUNT 4.47 x10^6/uL (3.50-5.40)
[2016-12-17 06:09] LABS: CALCIUM 9.1 mg/dL (8.5-10.1); GFR 57.4; POTASSIUM 4.2 mmol/L (3.5-5.1)
[2016-12-17] MEDS: PIPERACILLIN/TAZOBACTAM 3.375 GM in IV NORMAL SALINE 50ML 50 ML IV SCH ×2 (06:25→12:00)
[2016-12-17 07:15] VITALS: BP 115/72
[2016-12-17] MEDS ORDERED: PANTOPRAZOLE 40 MG TABLET.DR. PO SCH (07:30)
[2016-12-17] MEDS: ALBUTEROL SULFATE 2.5 MG/3 ML NEBU. NEB SCH ×4 (07:32→20:00)
[2016-12-17] MEDS: BUDESONIDE 0.5 MG/2 ML NEBU. NEB SCH ×2 (07:32→20:00)
[2016-12-17] MEDS ORDERED: PANTOPRAZOLE IV PUSH 40 MG VIAL. IVP SCH (08:30)
[2016-12-17] MEDS ORDERED: SALMETEROL IH SCH (09:00)
[2016-12-17] MEDS: cycloSPORINE 0.05% OPTH 1 DROP DROPERETTE OU SCH ×2 (09:00→20:53)
[2016-12-17] MEDS ORDERED: FLUTICASONE IH SCH (09:00)
[2016-12-17] MEDS: AA 3%/ELECTROLYTE-TPN SOLN/GLY 1,000 ML IV SCH ×2 (09:01→22:40)
--- NOTE | 2016-12-17 09:28 | PDOC2 ---
CONSULT Date of Consult Date of Consult DATE: 12/17/16 TIME: 09:27 Past Medical History Cardiovascular: HTN Pulmonary: Asthma GI: GERD, Irritable bowel disease Heme/Onc: Iron deficiency Anemia Musculoskeletal: Osteoarthritis Renal/: No pertinent hx Endocrine: Other Past Surgical History Past Surgical History: Cholecystectomy, Hysterectomy, Other Family History Family History: Hypertension Social History ALCOHOL: none Drugs: None Current Problem List Problem List Problems Medical Problems: (1) Abdominal pain Status: Acute (2) SBO (small bowel obstruction) Status: Acute Current Medications Current Medications Current Medications Ondansetron HCl (Zofran) 4 mg 1X ONCE IV Last administered on 12/16/16 14:28 ; Start 12/16/16 at 14:30; Stop 12/16/16 at 14:31; Status DC Iohexol (Omnipaque 300 Mg/ml) 75 ml 1X ONCE IV Last administered on 12/16/16 15:02; Start 12/16/16 at 14:45; Stop 12/16/16 at 14:46; Status DC Info 1 each 1 each PRN DAILY PRN MC SEE COMMENTS; Start 12/16/16 at 14:45; Stop 12/18/16 at 14:44 Sodium Chloride (Iv Sodium Chloride 0.9% 1000ml Bag) 1,000 ml @ 1,000 mls/hr 1X ONCE IV Last administered on 12/16/16 14:52; Start 12/16/16 at 14:45; Stop 12/16/16 at 15:44; Status DC Hydromorphone HCl (Dilaudid) 1 mg 1X ONCE IV Last administered on 12/16/16 14 :52; Start 12/16/16 at 14:45; Stop 12/16/16 at 14:46; Status DC Ondansetron HCl (Zofran) 4 mg PRN Q8HRS PRN IV NAUSEA/VOMITING Last administered on 12/17/16 03:56; Start 12/16/16 at 16:00; Stop 12/17/16 at 15:59 Fentanyl Citrate (Fentanyl 2ml Vial) 50 mcg PRN Q2HR PRN IV PAIN; Start at 16:00; Stop 12/17/16 at 15:59 Piperacillin Sod/ Tazobactam Sod 1 each 1 each PRN DAILY PRN MC SEE COMMENTS; Start 12/16/16 at 16:00 Piperacillin Sod/ Tazobactam Sod/ Sodium Chloride (Zosyn/Iv Sodium Chloride 0.9 % 50ml) 50 ml @ 100 mls/hr ONCE ONCE IV Last administered on 12/16/16 16:22 ; Start 12/16/16 at 16:00; Stop 12/16/16 at 16:29; Status DC Hydromorphone HCl (Dilaudid) 1 mg 1X ONCE IV Last administered on 12/16/16 16 :22; Start 12/16/16 at 16:30; Stop 12/16/16 at 16:31; Status DC Hydromorphone HCl 1 mg 1 mg PRN Q2HRS PRN IV pain Last administered on 20:45; Start 12/16/16 at 16:15 Piperacillin Sod/ Tazobactam Sod 3.375 gm/Sodium Chloride 50 ml @ 100 mls/hr Q6HRS IV Last administered on 12/17/16 06:25; Start 12/17/16 at 00:00 Amino Acids/ Glycerin/ Electrolytes (Procalamine) 1,000 ml @ 75 mls/hr [id number] IV Last administered on 12/17/16 09:01; Start 12/16/16 at 20:00 Prochlorperazine Edisylate (Compazine) 10 mg PRN Q8HRS PRN IV NAUSEA/VOMITING Last administered on 12/16/16 22:05; Start 12/16/16 at 20:00 Acetaminophen (Tylenol) 1,000 mg PRN Q6HRS PRN PO PAIN; Start 12/16/16 at 23:00 Cyclosporine (Restasis) 1 drop BID OU Last administered on 12/17/16 09:00; Start 12/17/16 at 09:00 Latanoprost (Xalatan) 1 drop HS OU ; Start 12/16/16 at 23:00; Stop 12/16/16 at 23:17; Status DC Pantoprazole Sodium (Protonix) 40 mg DAILYAC PO ; Start 12/17/16 at 07:30; Stop 12/17/16 at 08:20; Status DC Non-Formulary Medication 2 inh BID IH ; Start 12/17/16 at 09:00; Status UNV Non-Formulary Medication 45 mcg DAILY PRN IH SHORTNESS OF BREATH; Start at 23:00; Status UNV Albuterol Sulfate (Ventolin Neb Soln) 2.5 mg RTQID NEB ; Start 12/17/16 at 08:00 Budesonide (Pulmicort) 0.5 mg RTBID NEB ; Start 12/17/16 at 08:00 Pantoprazole Sodium (Protonix Vial) 40 mg DAILYAC IVP Last administered on 12/17t 09:02; Start 12/17/16 at 08:30 Active Scripts Active Doxycycline Hyclate 100 Mg Capsule 1 Cap PO BID Augmentin 875-125 Tablet (Amoxicillin/Potassium Clav) 1 Each Tablet 1 Tab PO BID Reported Restasis (Cyclosporine) 1 Each Droperette 1 Drop EACHEYE BID Advair Hfa 115-21 Mcg Inhaler (Fluticasone/Salmeterol) 12 Gm Hfa.aer.ad 2 Inh IH BID Acetaminophen 500 Mg Tablet 1,000 Mg PO Q6HRS PRN Protonix (Pantoprazole Sodium) 40 Mg Tablet.dr 40 Mg PO DAILY Fexofenadine Hcl 180 Mg Tablet 180 Mg PO DAILY Xalatan (Latanoprost) 2.5 Ml Drops 1 Drop OP HS Lipitor (Atorvastatin Calcium) 10 Mg Tablet 10 Mg PO HS Xopenex Hfa (Levalbuterol Tartrate) 15 Gm Hfa.aer.ad 45 Mcg IH DAILY PRN Montelukast Sodium Tablet (Montelukast Sodium) 10 Mg Tablet 10 Mg PO HS Zantac (Ranitidine Hcl) 150 Mg Tablet 150 Mg PO QHS Allergies Allergies: Coded Allergies: levofloxacin (Verified Allergy, Severe, Hives, 03/07/16) metronidazole (Verified Allergy, Severe, Hives, 03/07/16) Cephalosporins (Verified Allergy, Intermediate, 03/07/16) cephalexin (Verified Allergy, Intermediate, rash, 03/07/16) chlorhexidine (Verified Allergy, Intermediate, rash, 03/07/16) hyaluronic acid (Verified Allergy, Intermediate, 03/07/16) nifedipine (Verified Allergy, Intermediate, edema, 03/07/16) pneumococcal vaccine (Verified Allergy, Intermediate, swelling, 03/07/16) shellfish derived (Verified Allergy, Intermediate, 10/20/16) CARMELA Inhibitors (Verified Adverse Reaction, Intermediate, cough, 03/07/16) clarithromycin (Verified Adverse Reaction, Intermediate, diarrhea, 03/07/16 ) erythromycin base (Verified Adverse Reaction, Intermediate, diarrhea, 03/07) Vitals VITALS Vital Signs Date Time Temp Pulse Resp B/P Pulse Ox O2 Delivery O2 Flow Rate FiO2 12/17/16 07:15 98.3 103 18 115/72 94 Room Air 98.3 Labs Labs Laboratory Tests Test 12/16/16 14:00 12/16/16 17:25 12/16/16 17:45 12/17/16 05:15 White Blood Count 17.1x10^3/uL (4.0-11.0) 16.0x10^3/uL (4.0-11.0) Red Blood Count 4.88x10^6/uL (3.50-5.40) 4.47x10^6/uL (3.50-5.40) Hemoglobin 14.0g/dL (12.0-15.5) 12.9g/dL (12.0-15.5) Hematocrit 42.8% (36.0-47.0) 38.9% (36.0-47.0) Mean Corpuscular Volume 88fL (79-100) 87fL (79-100) Mean Corpuscular Hemoglobin 29pg (25-35) 29pg (25-35) Mean Corpuscular Hemoglobin Concent 33g/dL (31-37) 33g/dL (31-37) Red Cell Distribution Width 15.7% (11.5-14.5) 16.0% (11.5-14.5) Platelet Count 307x10^3/uL (140-400) 278x10^3/uL (140-400) Neutrophils (%) (Auto) 87% (31-73) 85% (31-73) Lymphocytes (%) (Auto) 8% (24-48) 9% (24-48) Monocytes (%) (Auto) 4% (0-9) 6% (0-9) Eosinophils (%) (Auto) 0% (0-3) 1% (0-3) Basophils (%) (Auto) 1% (0-3) 0% (0-3) Neutrophils # (Auto) 14.9x10^3uL (1.8-7.7) 13.6x10^3uL (1.8-7.7) Lymphocytes # (Auto) 1.4x10^3/uL (1.0-4.8) 1.4x10^3/uL (1.0-4.8) Monocytes # (Auto) 0.7x10^3/uL (0.0-1.1) 0.9x10^3/uL (0.0-1.1) Eosinophils # (Auto) 0.0x10^3/uL (0.0-0.7) 0.1x10^3/uL (0.0-0.7) Basophils # (Auto) 0.1x10^3/uL (0.0-0.2) 0.1x10^3/uL (0.0-0.2) Segmented Neutrophils % 84% (35-66) Band Neutrophils % 1% (0-9) Lymphocytes % 11% (24-48) Monocytes % 3% (0-10) Basophils % 1% (0-3) Platelet Estimate Adequate (ADEQUATE) Large Platelets Occ Ovalocytes Occ Schistocytes Occ Sodium Level 138mmol/L (136-145) 140mmol/L (136-145) Potassium Level 4.3mmol/L (3.5-5.1) 4.2mmol/L (3.5-5.1) Chloride Level 101mmol/L (98-107) 102mmol/L (98-107) Carbon Dioxide Level 24mmol/L (21-32) 28mmol/L (21-32) Anion Gap 13 (6-14) 10 (6-14) Blood Urea Nitrogen 17mg/dL (7-20) 21mg/dL (7-20) Creatinine 0.9mg/dL (0.6-1.0) 1.0mg/dL (0.6-1.0) Estimated GFR (Cockcroft-Gault) 64.8 57.4 BUN/Creatinine Ratio 19 (6-20) Glucose Level 134mg/dL (70-99) 146mg/dL (70-99) Calcium Level 9.7mg/dL (8.5-10.1) 9.1mg/dL (8.5-10.1) Total Bilirubin 0.6mg/dL (0.2-1.0) Aspartate Amino Transf (AST/SGOT) 42U/L (15-37) Alanine Aminotransferase (ALT/SGPT) 40U/L (14-59) Alkaline Phosphatase 105U/L (46-116) Troponin I Quantitative < 0.017ng/mL (0.000-0.055) Total Protein 8.2g/dL (6.4-8.2) Albumin 4.2g/dL (3.4-5.0) Albumin/Globulin Ratio 1.1 (1.0-1.7) Lipase 112U/L (73-393) Lactic Acid Level 1.3mmol/L (0.4-2.0) Urine Collection Type Unknown Urine Color Yellow Urine Clarity Clear Urine pH 5.0 Urine Specific [place] >=1.030 Urine Protein Negativemg/dL (NEG-TRACE) Urine Glucose (UA) Negativemg/dL (NEG) Urine Ketones (Stick) Negativemg/dL (NEG) Urine Blood Negative (NEG) Urine Nitrite Negative (NEG) Urine Bilirubin Negative (NEG) Urine Urobilinogen Dipstick 0.2mg/dL (0.2 mg/dL) Urine Leukocyte Esterase Negative (NEG) Urine RBC 0/HPF (0-2) Urine WBC Occ/HPF (0-4) Urine Squamous Epithelial Cells Few/LPF Urine Bacteria 0/HPF (0-FEW) Laboratory Tests Test 12/16/16 14:00 12/16/16 17:25 12/16/16 17:45 12/17/16 05:15 White Blood Count 17.1x10^3/uL (4.0-11.0) 16.0x10^3/uL (4.0-11.0) Red Blood Count 4.88x10^6/uL (3.50-5.40) 4.47x10^6/uL (3.50-5.40) Hemoglobin 14.0g/dL (12.0-15.5) 12.9g/dL (12.0-15.5) Hematocrit 42.8% (36.0-47.0) 38.9% (36.0-47.0) Mean Corpuscular Volume 88fL (79-100) 87fL (79-100) Mean Corpuscular Hemoglobin 29pg (25-35) 29pg (25-35) Mean Corpuscular Hemoglobin Concent 33g/dL (31-37) 33g/dL (31-37) Red Cell Distribution Width 15.7% (11.5-14.5) 16.0% (11.5-14.5) Platelet Count 307x10^3/uL (140-400) 278x10^3/uL (140-400) Neutrophils (%) (Auto) 87% (31-73) 85% (31-73) Lymphocytes (%) (Auto) 8% (24-48) 9% (24-48) Monocytes (%) (Auto) 4% (0-9) 6% (0-9) Eosinophils (%) (Auto) 0% (0-3) 1% (0-3) Basophils (%) (Auto) 1% (0-3) 0% (0-3) Neutrophils # (Auto) 14.9x10^3uL (1.8-7.7) 13.6x10^3uL (1.8-7.7) Lymphocytes # (Auto) 1.4x10^3/uL (1.0-4.8) 1.4x10^3/uL (1.0-4.8) Monocytes # (Auto) 0.7x10^3/uL (0.0-1.1) 0.9x10^3/uL (0.0-1.1) Eosinophils # (Auto) 0.0x10^3/uL (0.0-0.7) 0.1x10^3/uL (0.0-0.7) Basophils # (Auto) 0.1x10^3/uL (0.0-0.2) 0.1x10^3/uL (0.0-0.2) Segmented Neutrophils % 84% (35-66) Band Neutrophils % 1% (0-9) Lymphocytes % 11% (24-48) Monocytes % 3% (0-10) Basophils % 1% (0-3) Platelet Estimate Adequate (ADEQUATE) Large Platelets Occ Ovalocytes Occ Schistocytes Occ Sodium Level 138mmol/L (136-145) 140mmol/L (136-145) Potassium Level 4.3mmol/L (3.5-5.1) 4.2mmol/L (3.5-5.1) Chloride Level 101mmol/L (98-107) 102mmol/L (98-107) Carbon Dioxide Level 24mmol/L (21-32) 28mmol/L (21-32) Anion Gap 13 (6-14) 10 (6-14) Blood Urea Nitrogen 17mg/dL (7-20) 21mg/dL (7-20) Creatinine 0.9mg/dL (0.6-1.0) 1.0mg/dL (0.6-1.0) Estimated GFR (Cockcroft-Gault) 64.8 57.4 BUN/Creatinine Ratio 19 (6-20) Glucose Level 134mg/dL (70-99) 146mg/dL (70-99) Calcium Level 9.7mg/dL (8.5-10.1) 9.1mg/dL (8.5-10.1) Total Bilirubin 0.6mg/dL (0.2-1.0) Aspartate Amino Transf (AST/SGOT) 42U/L (15-37) Alanine Aminotransferase (ALT/SGPT) 40U/L (14-59) Alkaline Phosphatase 105U/L (46-116) Troponin I Quantitative < 0.017ng/mL (0.000-0.055) Total Protein 8.2g/dL (6.4-8.2) Albumin 4.2g/dL (3.4-5.0) Albumin/Globulin Ratio 1.1 (1.0-1.7) Lipase 112U/L (73-393) Lactic Acid Level 1.3mmol/L (0.4-2.0) Urine Collection Type Unknown Urine Color Yellow Urine Clarity Clear Urine pH 5.0 Urine Specific [place] >=1.030 Urine Protein Negativemg/dL (NEG-TRACE) Urine Glucose (UA) Negativemg/dL (NEG) Urine Ketones (Stick) Negativemg/dL (NEG) Urine Blood Negative (NEG) Urine Nitrite Negative (NEG) Urine Bilirubin Negative (NEG) Urine Urobilinogen Dipstick 0.2mg/dL (0.2 mg/dL) Urine Leukocyte Esterase Negative (NEG) Urine RBC 0/HPF (0-2) Urine WBC Occ/HPF (0-4) Urine Squamous Epithelial Cells Few/LPF Urine Bacteria 0/HPF (0-FEW) Assessment/Plan Assessment/Plan FNTBD SBO with hx of rectosigmoid resection, SBR will get SBFT will follow Thanks for consult ANA KYLE MD Dec 17, 2016 09:28
--- NOTE | 2016-12-17 10:01 | PDOC ---
PROGRESS NOTES Chief Complaint Chief Complaint SBO ASSESSMENT AND PLAN: 1. SBO: per CT, though to be at anastomotic site from previous tic resection. Dr Arreola following. SBFT pending. with hx of complicated perf.ed tic, not eager for surgery. 2. DM: currently NPO. ISS only 3. Prophylaxis: H2B IV History of Present Illness History of Present Illness abd pain currently manageable. N/V seem resolved. Vitals Vitals Vital Signs Date Time Temp Pulse Resp B/P Pulse Ox O2 Delivery O2 Flow Rate FiO2 12/17/16 07:15 98.3 103 18 115/72 94 Room Air 98.3 Physical Exam General: Alert, Oriented X3, Cooperative, No acute distress Heart: Regular rate Lungs: Clear Abdomen: Other Extremities: No clubbing, No edema Skin: No rashes Labs LABS Laboratory Tests Test 12/16/16 14:00 12/16/16 17:25 12/16/16 17:45 12/17/16 05:15 White Blood Count 17.1x10^3/uL (4.0-11.0) 16.0x10^3/uL (4.0-11.0) Red Blood Count 4.88x10^6/uL (3.50-5.40) 4.47x10^6/uL (3.50-5.40) Hemoglobin 14.0g/dL (12.0-15.5) 12.9g/dL (12.0-15.5) Hematocrit 42.8% (36.0-47.0) 38.9% (36.0-47.0) Mean Corpuscular Volume 88fL (79-100) 87fL (79-100) Mean Corpuscular Hemoglobin 29pg (25-35) 29pg (25-35) Mean Corpuscular Hemoglobin Concent 33g/dL (31-37) 33g/dL (31-37) Red Cell Distribution Width 15.7% (11.5-14.5) 16.0% (11.5-14.5) Platelet Count 307x10^3/uL (140-400) 278x10^3/uL (140-400) Neutrophils (%) (Auto) 87% (31-73) 85% (31-73) Lymphocytes (%) (Auto) 8% (24-48) 9% (24-48) Monocytes (%) (Auto) 4% (0-9) 6% (0-9) Eosinophils (%) (Auto) 0% (0-3) 1% (0-3) Basophils (%) (Auto) 1% (0-3) 0% (0-3) Neutrophils # (Auto) 14.9x10^3uL (1.8-7.7) 13.6x10^3uL (1.8-7.7) Lymphocytes # (Auto) 1.4x10^3/uL (1.0-4.8) 1.4x10^3/uL (1.0-4.8) Monocytes # (Auto) 0.7x10^3/uL (0.0-1.1) 0.9x10^3/uL (0.0-1.1) Eosinophils # (Auto) 0.0x10^3/uL (0.0-0.7) 0.1x10^3/uL (0.0-0.7) Basophils # (Auto) 0.1x10^3/uL (0.0-0.2) 0.1x10^3/uL (0.0-0.2) Segmented Neutrophils % 84% (35-66) Band Neutrophils % 1% (0-9) Lymphocytes % 11% (24-48) Monocytes % 3% (0-10) Basophils % 1% (0-3) Platelet Estimate Adequate (ADEQUATE) Large Platelets Occ Ovalocytes Occ Schistocytes Occ Sodium Level 138mmol/L (136-145) 140mmol/L (136-145) Potassium Level 4.3mmol/L (3.5-5.1) 4.2mmol/L (3.5-5.1) Chloride Level 101mmol/L (98-107) 102mmol/L (98-107) Carbon Dioxide Level 24mmol/L (21-32) 28mmol/L (21-32) Anion Gap 13 (6-14) 10 (6-14) Blood Urea Nitrogen 17mg/dL (7-20) 21mg/dL (7-20) Creatinine 0.9mg/dL (0.6-1.0) 1.0mg/dL (0.6-1.0) Estimated GFR (Cockcroft-Gault) 64.8 57.4 BUN/Creatinine Ratio 19 (6-20) Glucose Level 134mg/dL (70-99) 146mg/dL (70-99) Calcium Level 9.7mg/dL (8.5-10.1) 9.1mg/dL (8.5-10.1) Total Bilirubin 0.6mg/dL (0.2-1.0) Aspartate Amino Transf (AST/SGOT) 42U/L (15-37) Alanine Aminotransferase (ALT/SGPT) 40U/L (14-59) Alkaline Phosphatase 105U/L (46-116) Troponin I Quantitative < 0.017ng/mL (0.000-0.055) Total Protein 8.2g/dL (6.4-8.2) Albumin 4.2g/dL (3.4-5.0) Albumin/Globulin Ratio 1.1 (1.0-1.7) Lipase 112U/L (73-393) Lactic Acid Level 1.3mmol/L (0.4-2.0) Urine Collection Type Unknown Urine Color Yellow Urine Clarity Clear Urine pH 5.0 Urine Specific [place] >=1.030 Urine Protein Negativemg/dL (NEG-TRACE) Urine Glucose (UA) Negativemg/dL (NEG) Urine Ketones (Stick) Negativemg/dL (NEG) Urine Blood Negative (NEG) Urine Nitrite Negative (NEG) Urine Bilirubin Negative (NEG) Urine Urobilinogen Dipstick 0.2mg/dL (0.2 mg/dL) Urine Leukocyte Esterase Negative (NEG) Urine RBC 0/HPF (0-2) Urine WBC Occ/HPF (0-4) Urine Squamous Epithelial Cells Few/LPF Urine Bacteria 0/HPF (0-FEW) HARVEY QUEZADA MD Dec 17, 2016 10:01
[2016-12-17 11:00] VITALS: BP 114/68
[2016-12-17] MEDS ORDERED: IOHEXOL 350 MG/ML 100 ML VIAL. PO ONE (11:30)
[2016-12-17] MEDS ORDERED: CONTRAST GIVEN MC PRN (11:30)
[2016-12-17] MEDS: HYDROmorphone 2 MG/ML VIAL IV PRN (11:56)
--- NOTE | 2016-12-17 15:01 | RAD ---
Small bowel series, 12/17/2016: History: Small bowel obstruction, pain The preliminary abdominal image demonstrates gas in large and small bowel without significant bowel distention. Multiple surgical sutures are present in the pelvis. Surgical clips are present in the right upper quadrant. There is no evidence of organomegaly. Overhead and spot films were obtained following oral ingestion of contrast. Nonionic contrast was utilized for this study as requested. 1.3 minutes of fluoroscopy time was utilized. 6 fluoroscopic spot images were recorded. The majority of the small bowel loops are of normal caliber. A couple of loops of mid small bowel are at the upper limits of normal in size. There was prompt passage of the contrast through the small bowel, reaching the colon at 90 minutes. Dilution of contrast produced poor definition of distal small bowel loops. Loops of distal ileum including the terminal ileum are not dilated. IMPRESSION: No current evidence of significant small bowel obstruction.
[2016-12-17 15:30] VITALS: BP 119/78
[2016-12-17] MEDS ORDERED: DEXTROSE 50% 25 GM / 50ML DISP.SYRIN. IV PRN (16:45)
[2016-12-17] MEDS: INSULIN ASPART 300 UNITS/3 ML INSULN.PEN SQ SCH (17:00)
[2016-12-17 19:00] VITALS: BP 114/66
[2016-12-17] MEDS: ACETAMINOPHEN 500 MG TABLET PO PRN (21:00)
[2016-12-17 23:00] VITALS: BP 109/59
[2016-12-18 03:00] VITALS: BP 109/65
--- NOTE | 2016-12-18 05:01 | CONS ---
DATE OF CONSULTATION: 12/16/[address] Guevara. 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 I know her from previous visits for her diverticulitis. She went to the [facility] for a sigmoid resection over a year ago. She has done well until recently when she developed some abdominal pain and nausea. We are asked to see her for same. 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 This was subsequently taken down. Cholecystectomy, hysterectomy, right shoulder surgery, carpal tunnel release. PAST MEDICAL HISTORY: Medically, obvious history of diverticular disease, arthritis, glaucoma, asthma, she is diabetic, GERD, irritable bowel. ALLERGIES: INCLUDE CARMELA INHIBITORS, CEPHALOSPORINS, CHLORHEXIDINE, CLARITHROMYCIN, ERYTHROMYCIN, LEVAQUIN, FLAGYL, SHELLFISH, NIFEDIPINE, PNEUMOCOCCAL VACCINE. ROUTINE MEDICATIONS: All listed on reconciliation sheet. FAMILY HISTORY: Hypertension. SOCIAL HISTORY: She is a nonsmoker who does not use alcohol. 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 REVIEW OF SYSTEMS: GENERAL: Denies fever or chills. HEENT: No recent sore throat or earaches. RESPIRATORY: No productive cough or wheezing. CARDIAC: Denies chest pain or palpitations. GASTROINTESTINAL: See history of present illness. GENITOURINARY: No increased frequency or dysuria. NEUROLOGIC: Denies headaches or visual changes. ENDOCRINE: She is diabetic. EXTREMITIES: No specific muscle pains or joint pain. OBJECTIVE: GENERAL: Physical exam reveals an alert and oriented, well-developed female, who is not in acute distress. VITAL SIGNS: At the time of exam, her temperature was ____, heart rate 97. HEENT: Normocephalic. EOMs intact. NECK: Supple. LUNGS: Clear. HEART: Has regular rate and rhythm. ABDOMEN: Belly is soft and nondistended. Well healed incisional scars. PELVIC AND RECTAL: Deferred. EXTREMITIES: Showed no gross skeletal abnormalities. NEUROLOGIC: She is intact. ADMISSION LABORATORY DATA: Included a white count of 17,100, hemoglobin of 14. Chemistries were unremarkable. Lactic acid 1.3. IMAGING: CT scan on presentation showed post-surgical changes and small bowel dilatation near one of the ileal anastomosis. IMPRESSION: 1. Abdominal pain and nausea. 1.1. Small-bowel obstruction by CT. 1.2. Status post colon resection and small bowel resection. 2. Diabetes. 3. Asthma. 4. Irritable bowel syndrome. 5. Gastroesophageal reflux disease. PLAN: We will obtain a small bowel follow through to further assess patency of her small bowel on the area of previous anastomosis. Thank you for asking me to see the patient and participate in her care. We will follow her with you during her hospitalization. ANA KYLE MD DR: RIVERA/keyanna JOB#: [id number] / [id number]
[2016-12-18 06:36] LABS: BASO # 0.1 x10^3/uL (0.0-0.2); BASO % 1 % (0-3); EOS % 3 % (0-3); HEMATOCRIT 38.4 % (36.0-47.0); HEMOGLOBIN 12.3 g/dL (12.0-15.5); LYMPH # 2.4 x10^3/uL (1.0-4.8); LYMPH % 29 % (24-48); MEAN CORPUSCULAR HEMOGLOBIN 28 pg (25-35); MEAN CORPUSCULAR HGB CONC 32 g/dL (31-37); MEAN CORPUSCULAR VOLUME 88 fL (79-100); MONO % 7 % (0-9); NEUT % 61 % (31-73); PLATELET COUNT 251 x10^3/uL (140-400); RED BLOOD COUNT 4.36 x10^6/uL (3.50-5.40); RED CELL DISTRIBUTION WIDTH 15.9 % (11.5-14.5); WHITE BLOOD COUNT 8.5 x10^3/uL (4.0-11.0)
[2016-12-18 06:53] LABS: CALCIUM 9.1 mg/dL (8.5-10.1); CREATININE 0.9 mg/dL (0.6-1.0); GFR 64.8; POTASSIUM 3.6 mmol/L (3.5-5.1)
[2016-12-18 07:00] VITALS: BP 138/77
[2016-12-18] MEDS: ALBUTEROL SULFATE 2.5 MG/3 ML NEBU. NEB SCH ×2 (08:00→12:00)
[2016-12-18] MEDS: BUDESONIDE 0.5 MG/2 ML NEBU. NEB SCH (08:00)
[2016-12-18] MEDS: INSULIN ASPART 300 UNITS/3 ML INSULN.PEN SQ SCH ×2 (08:00→12:00)
[2016-12-18] MEDS: AA 3%/ELECTROLYTE-TPN SOLN/GLY 1,000 ML IV SCH (08:20)
[2016-12-18] MEDS: cycloSPORINE 0.05% OPTH 1 DROP DROPERETTE OU SCH (08:20)
--- NOTE | 2016-12-18 08:41 | PDOC3 ---
Discharge Summary Visit Information Date of Admission: Dec 16, 2016 Date of Discharge: Dec 18, 2016 Admitting Diagnosis: SBO Final Diagnosis OTHER : Hxdiverticulitis which perforated and she ended up with an ostomy and she had a fistula into the bladder, anemia, glaucoma, asthma, diabetes (diet controlled), diverticulitis, GERD, irritable bowel syndrome, IgG deficiency, ALLERGIES: CARMELA INHIBITORS, CEPHALOSPORINS, CHLORHEXIDINE, CLARITHROMYCIN, ERYTHROMYCIN, LEVAQUIN, METRONIDAZOLE, NIFEDIPINE, PNEUOMOCOCCAL VACCINE, SHELLFISH. Problems Medical Problems: (1) Abdominal pain Status: Acute (2) SBO (small bowel obstruction) Status: Acute Brief Hospital Course Allergies Allergies Coded Allergies Type Severity Reaction Last Updated Verified levofloxacin Allergy Severe Hives 03/07/16 Yes metronidazole Allergy Severe Hives 03/07/16 Yes Cephalosporins Allergy Intermediate 03/07/16 Yes cephalexin Allergy Intermediate rash 03/07/16 Yes chlorhexidine Allergy Intermediate rash 03/07/16 Yes hyaluronic acid Allergy Intermediate 03/07/16 Yes nifedipine Allergy Intermediate edema 03/07/16 Yes pneumococcal vaccine Allergy Intermediate swelling 03/07/16 Yes shellfish derived Allergy Intermediate 10/20/16 Yes CARMELA Inhibitors Adverse Reaction Intermediate cough 03/07/16 Yes clarithromycin Adverse Reaction Intermediate diarrhea 03/07/16 Yes erythromycin base Adverse Reaction Intermediate diarrhea 03/07/16 Yes Vital Signs Vital Signs Date Time Temp Pulse Resp B/P Pulse Ox O2 Delivery O2 Flow Rate FiO2 12/18/16 03:00 97.9 89 18 109/65 96 Room Air 97.9 Lab Results Laboratory Tests Test 12/16/16 14:00 12/16/16 17:25 12/16/16 17:45 12/17/16 05:15 White Blood Count 17.1x10^3/uL (4.0-11.0) 16.0x10^3/uL (4.0-11.0) Red Blood Count 4.88x10^6/uL (3.50-5.40) 4.47x10^6/uL (3.50-5.40) Hemoglobin 14.0g/dL (12.0-15.5) 12.9g/dL (12.0-15.5) Hematocrit 42.8% (36.0-47.0) 38.9% (36.0-47.0) Mean Corpuscular Volume 88fL (79-100) 87fL (79-100) Mean Corpuscular Hemoglobin 29pg (25-35) 29pg (25-35) Mean Corpuscular Hemoglobin Concent 33g/dL (31-37) 33g/dL (31-37) Red Cell Distribution Width 15.7% (11.5-14.5) 16.0% (11.5-14.5) Platelet Count 307x10^3/uL (140-400) 278x10^3/uL (140-400) Neutrophils (%) (Auto) 87% (31-73) 85% (31-73) Lymphocytes (%) (Auto) 8% (24-48) 9% (24-48) Monocytes (%) (Auto) 4% (0-9) 6% (0-9) Eosinophils (%) (Auto) 0% (0-3) 1% (0-3) Basophils (%) (Auto) 1% (0-3) 0% (0-3) Neutrophils # (Auto) 14.9x10^3uL (1.8-7.7) 13.6x10^3uL (1.8-7.7) Lymphocytes # (Auto) 1.4x10^3/uL (1.0-4.8) 1.4x10^3/uL (1.0-4.8) Monocytes # (Auto) 0.7x10^3/uL (0.0-1.1) 0.9x10^3/uL (0.0-1.1) Eosinophils # (Auto) 0.0x10^3/uL (0.0-0.7) 0.1x10^3/uL (0.0-0.7) Basophils # (Auto) 0.1x10^3/uL (0.0-0.2) 0.1x10^3/uL (0.0-0.2) Segmented Neutrophils % 84% (35-66) Band Neutrophils % 1% (0-9) Lymphocytes % 11% (24-48) Monocytes % 3% (0-10) Basophils % 1% (0-3) Platelet Estimate Adequate (ADEQUATE) Large Platelets Occ Ovalocytes Occ Schistocytes Occ Sodium Level 138mmol/L (136-145) 140mmol/L (136-145) Potassium Level 4.3mmol/L (3.5-5.1) 4.2mmol/L (3.5-5.1) Chloride Level 101mmol/L (98-107) 102mmol/L (98-107) Carbon Dioxide Level 24mmol/L (21-32) 28mmol/L (21-32) Anion Gap 13 (6-14) 10 (6-14) Blood Urea Nitrogen 17mg/dL (7-20) 21mg/dL (7-20) Creatinine 0.9mg/dL (0.6-1.0) 1.0mg/dL (0.6-1.0) Estimated GFR (Cockcroft-Gault) 64.8 57.4 BUN/Creatinine Ratio 19 (6-20) Glucose Level 134mg/dL (70-99) 146mg/dL (70-99) Calcium Level 9.7mg/dL (8.5-10.1) 9.1mg/dL (8.5-10.1) Total Bilirubin 0.6mg/dL (0.2-1.0) Aspartate Amino Transf (AST/SGOT) 42U/L (15-37) Alanine Aminotransferase (ALT/SGPT) 40U/L (14-59) Alkaline Phosphatase 105U/L (46-116) Troponin I Quantitative < 0.017ng/mL (0.000-0.055) Total Protein 8.2g/dL (6.4-8.2) Albumin 4.2g/dL (3.4-5.0) Albumin/Globulin Ratio 1.1 (1.0-1.7) Lipase 112U/L (73-393) Lactic Acid Level 1.3mmol/L (0.4-2.0) Urine Collection Type Unknown Urine Color Yellow Urine Clarity Clear Urine pH 5.0 Urine Specific [place] >=1.030 Urine Protein Negativemg/dL (NEG-TRACE) Urine Glucose (UA) Negativemg/dL (NEG) Urine Ketones (Stick) Negativemg/dL (NEG) Urine Blood Negative (NEG) Urine Nitrite Negative (NEG) Urine Bilirubin Negative (NEG) Urine Urobilinogen Dipstick 0.2mg/dL (0.2 mg/dL) Urine Leukocyte Esterase Negative (NEG) Urine RBC 0/HPF (0-2) Urine WBC Occ/HPF (0-4) Urine Squamous Epithelial Cells Few/LPF Urine Bacteria 0/HPF (0-FEW) Test 12/17/16 17:13 12/17/16 20:50 12/18/16 05:45 12/18/16 07:50 Glucose (Fingerstick) 119mg/dL (70-99) 139mg/dL (70-99) 131mg/dL (70-99) White Blood Count 8.5x10^3/uL (4.0-11.0) Red Blood Count 4.36x10^6/uL (3.50-5.40) Hemoglobin 12.3g/dL (12.0-15.5) Hematocrit 38.4% (36.0-47.0) Mean Corpuscular Volume 88fL (79-100) Mean Corpuscular Hemoglobin 28pg (25-35) Mean Corpuscular Hemoglobin Concent 32g/dL (31-37) Red Cell Distribution Width 15.9% (11.5-14.5) Platelet Count 251x10^3/uL (140-400) Neutrophils (%) (Auto) 61% (31-73) Lymphocytes (%) (Auto) 29% (24-48) Monocytes (%) (Auto) 7% (0-9) Eosinophils (%) (Auto) 3% (0-3) Basophils (%) (Auto) 1% (0-3) Neutrophils # (Auto) 5.2x10^3uL (1.8-7.7) Lymphocytes # (Auto) 2.4x10^3/uL (1.0-4.8) Monocytes # (Auto) 0.6x10^3/uL (0.0-1.1) Eosinophils # (Auto) 0.2x10^3/uL (0.0-0.7) Basophils # (Auto) 0.1x10^3/uL (0.0-0.2) Sodium Level 139mmol/L (136-145) Potassium Level 3.6mmol/L (3.5-5.1) Chloride Level 104mmol/L (98-107) Carbon Dioxide Level 26mmol/L (21-32) Anion Gap 9 (6-14) Blood Urea Nitrogen 19mg/dL (7-20) Creatinine 0.9mg/dL (0.6-1.0) Estimated GFR (Cockcroft-Gault) 64.8 Glucose Level 124mg/dL (70-99) Calcium Level 9.1mg/dL (8.5-10.1) Laboratory Tests Test 12/17/16 17:13 12/17/16 20:50 12/18/16 05:45 12/18/16 07:50 Glucose (Fingerstick) 119mg/dL (70-99) 139mg/dL (70-99) 131mg/dL (70-99) White Blood Count 8.5x10^3/uL (4.0-11.0) Red Blood Count 4.36x10^6/uL (3.50-5.40) Hemoglobin 12.3g/dL (12.0-15.5) Hematocrit 38.4% (36.0-47.0) Mean Corpuscular Volume 88fL (79-100) Mean Corpuscular Hemoglobin 28pg (25-35) Mean Corpuscular Hemoglobin Concent 32g/dL (31-37) Red Cell Distribution Width 15.9% (11.5-14.5) Platelet Count 251x10^3/uL (140-400) Neutrophils (%) (Auto) 61% (31-73) Lymphocytes (%) (Auto) 29% (24-48) Monocytes (%) (Auto) 7% (0-9) Eosinophils (%) (Auto) 3% (0-3) Basophils (%) (Auto) 1% (0-3) Neutrophils # (Auto) 5.2x10^3uL (1.8-7.7) Lymphocytes # (Auto) 2.4x10^3/uL (1.0-4.8) Monocytes # (Auto) 0.6x10^3/uL (0.0-1.1) Eosinophils # (Auto) 0.2x10^3/uL (0.0-0.7) Basophils # (Auto) 0.1x10^3/uL (0.0-0.2) Sodium Level 139mmol/L (136-145) Potassium Level 3.6mmol/L (3.5-5.1) Chloride Level 104mmol/L (98-107) Carbon Dioxide Level 26mmol/L (21-32) Anion Gap 9 (6-14) Blood Urea Nitrogen 19mg/dL (7-20) Creatinine 0.9mg/dL (0.6-1.0) Estimated GFR (Cockcroft-Gault) 64.8 Glucose Level 124mg/dL (70-99) Calcium Level 9.1mg/dL (8.5-10.1) Brief Hospital Course Ms. Rojas is a 56 old female, with complicated med history of abd pain and mult prior surg admit with acute abd pain SBO, surg consulted conservative management, NPO to clears veronica full liquid and requested DC SBFT IMPRESSION: No current evidence of significant small bowel obstruction. Discharge Information Condition at Discharge: Improved Follow Up: Weeks Disposition/Orders: D/C to Home Scheduled Amoxicillin/Potassium Clav (Augmentin 875-125 Tablet) 1 TAB PO BID Atorvastatin Calcium (Lipitor) 10 MG PO HS (Reported) Cyclosporine (Restasis) 1 DROP EACHEYE BID (Reported) Doxycycline Hyclate (Doxycycline Hyclate) 1 CAP PO BID Fexofenadine Hcl (Fexofenadine Hcl) 180 MG PO DAILY (Reported) Fluticasone/Salmeterol (Advair Hfa 115-21 Mcg Inhaler) 2 INH IH BID (Reported) Latanoprost (Xalatan) 1 DROP OP HS (Reported) Montelukast Sodium (Montelukast Sodium Tablet) 10 MG PO HS (Reported) Pantoprazole Sodium (Protonix) 40 MG PO DAILY (Reported) Ranitidine Hcl (Zantac) 150 MG PO QHS (Reported) Scheduled PRN Acetaminophen (Acetaminophen) 1,000 MG PO Q6HRS PRN PRN PAIN (Reported) Levalbuterol Tartrate (Xopenex Hfa) 45 MCG IH DAILY PRN PRN SHORTNESS OF BREATH (Reported) LATOYA ALMEIDA MD Dec 18, 2016 08:41
--- NOTE | 2016-12-18 10:35 | PDOC ---
SURGICAL PROGRESS NOTE Subjective tired no new complaints Vital Signs Vital Signs Date Time Temp Pulse Resp B/P Pulse Ox O2 Delivery O2 Flow Rate FiO2 12/18/16 07:25 Room Air 12/18/16 07:00 98.6 95 16 138/77 95 98.6 I&O Intake and Output 12/18/16 07:00 Intake Total 821 ml Balance 821 ml Intake Oral 450 ml IV Total 371 ml # Voids 2 # Bowel Movements 8 PATIENT HAS A UGARTE: No Labs Laboratory Tests Test 12/16/16 14:00 12/16/16 17:25 12/16/16 17:45 12/17/16 05:15 White Blood Count 17.1x10^3/uL (4.0-11.0) 16.0x10^3/uL (4.0-11.0) Red Blood Count 4.88x10^6/uL (3.50-5.40) 4.47x10^6/uL (3.50-5.40) Hemoglobin 14.0g/dL (12.0-15.5) 12.9g/dL (12.0-15.5) Hematocrit 42.8% (36.0-47.0) 38.9% (36.0-47.0) Mean Corpuscular Volume 88fL (79-100) 87fL (79-100) Mean Corpuscular Hemoglobin 29pg (25-35) 29pg (25-35) Mean Corpuscular Hemoglobin Concent 33g/dL (31-37) 33g/dL (31-37) Red Cell Distribution Width 15.7% (11.5-14.5) 16.0% (11.5-14.5) Platelet Count 307x10^3/uL (140-400) 278x10^3/uL (140-400) Neutrophils (%) (Auto) 87% (31-73) 85% (31-73) Lymphocytes (%) (Auto) 8% (24-48) 9% (24-48) Monocytes (%) (Auto) 4% (0-9) 6% (0-9) Eosinophils (%) (Auto) 0% (0-3) 1% (0-3) Basophils (%) (Auto) 1% (0-3) 0% (0-3) Neutrophils # (Auto) 14.9x10^3uL (1.8-7.7) 13.6x10^3uL (1.8-7.7) Lymphocytes # (Auto) 1.4x10^3/uL (1.0-4.8) 1.4x10^3/uL (1.0-4.8) Monocytes # (Auto) 0.7x10^3/uL (0.0-1.1) 0.9x10^3/uL (0.0-1.1) Eosinophils # (Auto) 0.0x10^3/uL (0.0-0.7) 0.1x10^3/uL (0.0-0.7) Basophils # (Auto) 0.1x10^3/uL (0.0-0.2) 0.1x10^3/uL (0.0-0.2) Segmented Neutrophils % 84% (35-66) Band Neutrophils % 1% (0-9) Lymphocytes % 11% (24-48) Monocytes % 3% (0-10) Basophils % 1% (0-3) Platelet Estimate Adequate (ADEQUATE) Large Platelets Occ Ovalocytes Occ Schistocytes Occ Sodium Level 138mmol/L (136-145) 140mmol/L (136-145) Potassium Level 4.3mmol/L (3.5-5.1) 4.2mmol/L (3.5-5.1) Chloride Level 101mmol/L (98-107) 102mmol/L (98-107) Carbon Dioxide Level 24mmol/L (21-32) 28mmol/L (21-32) Anion Gap 13 (6-14) 10 (6-14) Blood Urea Nitrogen 17mg/dL (7-20) 21mg/dL (7-20) Creatinine 0.9mg/dL (0.6-1.0) 1.0mg/dL (0.6-1.0) Estimated GFR (Cockcroft-Gault) 64.8 57.4 BUN/Creatinine Ratio 19 (6-20) Glucose Level 134mg/dL (70-99) 146mg/dL (70-99) Calcium Level 9.7mg/dL (8.5-10.1) 9.1mg/dL (8.5-10.1) Total Bilirubin 0.6mg/dL (0.2-1.0) Aspartate Amino Transf (AST/SGOT) 42U/L (15-37) Alanine Aminotransferase (ALT/SGPT) 40U/L (14-59) Alkaline Phosphatase 105U/L (46-116) Troponin I Quantitative < 0.017ng/mL (0.000-0.055) Total Protein 8.2g/dL (6.4-8.2) Albumin 4.2g/dL (3.4-5.0) Albumin/Globulin Ratio 1.1 (1.0-1.7) Lipase 112U/L (73-393) Lactic Acid Level 1.3mmol/L (0.4-2.0) Urine Collection Type Unknown Urine Color Yellow Urine Clarity Clear Urine pH 5.0 Urine Specific [place] >=1.030 Urine Protein Negativemg/dL (NEG-TRACE) Urine Glucose (UA) Negativemg/dL (NEG) Urine Ketones (Stick) Negativemg/dL (NEG) Urine Blood Negative (NEG) Urine Nitrite Negative (NEG) Urine Bilirubin Negative (NEG) Urine Urobilinogen Dipstick 0.2mg/dL (0.2 mg/dL) Urine Leukocyte Esterase Negative (NEG) Urine RBC 0/HPF (0-2) Urine WBC Occ/HPF (0-4) Urine Squamous Epithelial Cells Few/LPF Urine Bacteria 0/HPF (0-FEW) Test 12/17/16 17:13 12/17/16 20:50 12/18/16 05:45 12/18/16 07:50 Glucose (Fingerstick) 119mg/dL (70-99) 139mg/dL (70-99) 131mg/dL (70-99) White Blood Count 8.5x10^3/uL (4.0-11.0) Red Blood Count 4.36x10^6/uL (3.50-5.40) Hemoglobin 12.3g/dL (12.0-15.5) Hematocrit 38.4% (36.0-47.0) Mean Corpuscular Volume 88fL (79-100) Mean Corpuscular Hemoglobin 28pg (25-35) Mean Corpuscular Hemoglobin Concent 32g/dL (31-37) Red Cell Distribution Width 15.9% (11.5-14.5) Platelet Count 251x10^3/uL (140-400) Neutrophils (%) (Auto) 61% (31-73) Lymphocytes (%) (Auto) 29% (24-48) Monocytes (%) (Auto) 7% (0-9) Eosinophils (%) (Auto) 3% (0-3) Basophils (%) (Auto) 1% (0-3) Neutrophils # (Auto) 5.2x10^3uL (1.8-7.7) Lymphocytes # (Auto) 2.4x10^3/uL (1.0-4.8) Monocytes # (Auto) 0.6x10^3/uL (0.0-1.1) Eosinophils # (Auto) 0.2x10^3/uL (0.0-0.7) Basophils # (Auto) 0.1x10^3/uL (0.0-0.2) Sodium Level 139mmol/L (136-145) Potassium Level 3.6mmol/L (3.5-5.1) Chloride Level 104mmol/L (98-107) Carbon Dioxide Level 26mmol/L (21-32) Anion Gap 9 (6-14) Blood Urea Nitrogen 19mg/dL (7-20) Creatinine 0.9mg/dL (0.6-1.0) Estimated GFR (Cockcroft-Gault) 64.8 Glucose Level 124mg/dL (70-99) Calcium Level 9.1mg/dL (8.5-10.1) Laboratory Tests Test 12/17/16 17:13 12/17/16 20:50 12/18/16 05:45 12/18/16 07:50 Glucose (Fingerstick) 119mg/dL (70-99) 139mg/dL (70-99) 131mg/dL (70-99) White Blood Count 8.5x10^3/uL (4.0-11.0) Red Blood Count 4.36x10^6/uL (3.50-5.40) Hemoglobin 12.3g/dL (12.0-15.5) Hematocrit 38.4% (36.0-47.0) Mean Corpuscular Volume 88fL (79-100) Mean Corpuscular Hemoglobin 28pg (25-35) Mean Corpuscular Hemoglobin Concent 32g/dL (31-37) Red Cell Distribution Width 15.9% (11.5-14.5) Platelet Count 251x10^3/uL (140-400) Neutrophils (%) (Auto) 61% (31-73) Lymphocytes (%) (Auto) 29% (24-48) Monocytes (%) (Auto) 7% (0-9) Eosinophils (%) (Auto) 3% (0-3) Basophils (%) (Auto) 1% (0-3) Neutrophils # (Auto) 5.2x10^3uL (1.8-7.7) Lymphocytes # (Auto) 2.4x10^3/uL (1.0-4.8) Monocytes # (Auto) 0.6x10^3/uL (0.0-1.1) Eosinophils # (Auto) 0.2x10^3/uL (0.0-0.7) Basophils # (Auto) 0.1x10^3/uL (0.0-0.2) Sodium Level 139mmol/L (136-145) Potassium Level 3.6mmol/L (3.5-5.1) Chloride Level 104mmol/L (98-107) Carbon Dioxide Level 26mmol/L (21-32) Anion Gap 9 (6-14) Blood Urea Nitrogen 19mg/dL (7-20) Creatinine 0.9mg/dL (0.6-1.0) Estimated GFR (Cockcroft-Gault) 64.8 Glucose Level 124mg/dL (70-99) Calcium Level 9.1mg/dL (8.5-10.1) I have reviewed the following WBC down Problem List Problems Medical Problems: (1) Abdominal pain Status: Acute (2) SBO (small bowel obstruction) Status: Acute Assessment/Plan improving, albeit slowly no new surgical recs f/u prn Problems: ANA KYLE MD Dec 18, 2016 10:35
[2016-12-18 11:00] VITALS: BP 142/86
[2016-12-18] MEDS: ACETAMINOPHEN 500 MG TABLET PO PRN (12:27)
== END 2016-12-18 12:45 | disposition home or self-care (01) | DRG 392 ==
LOC: ER 13:06 → 4 NORTH 13:56
PROVIDERS: ADMIT Internal Medicine; ATTEND Internal Medicine
DX: K57.92 Diverticulitis of intestine, part unspecified, without perforation or abscess without bleeding (principal); D80.3 Selective deficiency of immunoglobulin G [IgG] subclasses; K56.60 Unspecified intestinal obstruction; D64.9 Anemia, unspecified; D72.829 Elevated white blood cell count, unspecified; H40.9 Unspecified glaucoma; I10 Essential (primary) hypertension; J45.909 Unspecified asthma, uncomplicated; M19.90 Unspecified osteoarthritis, unspecified site; K21.9 Gastro-esophageal reflux disease without esophagitis; K58.9 Irritable bowel syndrome, unspecified; Z82.49 Family history of ischemic heart disease and other diseases of the circulatory system; Z90.49 Acquired absence of other specified parts of digestive tract; E11.39 Type 2 diabetes mellitus with other diabetic ophthalmic complication; Z90.710 Acquired absence of both cervix and uterus; Z88.7 Allergy status to serum and vaccine; Z88.8 Allergy status to other drugs, medicaments and biological substances; Z88.1 Allergy status to other antibiotic agents; Z91.013 Allergy to seafood
CPT/HCPCS: 36415; 74177; 74250; 80048; 80053; 81001; 82947; 83605; 83690; 84484; 85007; 85027; 93005; 96361; 96374; 96375; 96376; C9113; J0780; J1170; J2405; J2543; J7030; Q9967; 99285-25

== ENCOUNTER → 2017-04-18 | Outpatient (CLI) | payer OTHER ==
[~2017-04-18] MED LIST changes: +ASPI-630 PO; -ASPI81TA2 PO; +FEXO180T16 PO; -FEXO180T5 PO; -LANS30CA17 PO; +LANS30CA66 PO; -OXYC-244 PO; +OXYC-327 PO; -ZONI100C12 PO; +ZONI100C33 PO
[2017-04-18 10:47] LABS: ALBUMIN 4.2 g/dL (3.4-5.0); ALBUMIN/GLOBULIN RATIO 1.1 (1.0-1.7); CALCIUM 9.3 mg/dL (8.5-10.1); CHOLESTEROL/HDL RATIO 3.5; CREATININE 1.2 mg/dL (0.6-1.0); GFR 46.3; POTASSIUM 4.1 mmol/L (3.5-5.1); TOTAL BILIRUBIN 0.4 mg/dL (0.2-1.0)
== END | disposition home or self-care (01) ==
LOC: LAB 10:03
PROVIDERS: ATTEND Family Medicine
DX: I10 Essential (primary) hypertension (principal); E11.9 Type 2 diabetes mellitus without complications; E78.00 Pure hypercholesterolemia, unspecified
CPT/HCPCS: 36415; 80053; 80061; 83874; 84443

== ENCOUNTER → 2017-04-21 | Outpatient (CLI) | payer OTHER ==
--- NOTE | 2017-04-21 17:14 | RAD ---
Thyroid ultrasound 04/13/2017 Clinical history: Multinodular goiter. Technique: A real-time ultrasound examination of the thyroid gland was performed. Multiple images were obtained. Findings: The thyroid gland is mildly enlarged. The right lobe of the thyroid gland measures 4.7 x 1.4 x 1.7 cm in longitudinal, transverse and AP dimensions. The left lobe of thyroid gland measures 4.1 x 1.1 x 1.5 cm in size. The isthmus measures 5 mm in thickness. 3 small rounded and oval-shaped hypoechoic and/or slightly complex anechoic nodules are seen scattered throughout both lobes of the thyroid gland. These measure 3 mm to 6 mm in size. These findings are consistent with a multinodular goiter. No significant solid mass is seen. Impression: Findings consistent with a multinodular goiter.
== END | disposition home or self-care (01) ==
LOC: US 16:06
PROVIDERS: ATTEND Family Medicine
DX: E04.2 Nontoxic multinodular goiter (principal)
CPT/HCPCS: 76536

== ENCOUNTER → 2017-06-19 | Outpatient (CLI) | payer OTHER ==
[~2017-06-19] MED LIST changes: -OXYC5TAB PO; +OXYC5TAB95 PO
--- NOTE | 2017-06-20 08:55 | RAD ---
DATE: 06/19/2017 EXAM: DIGITAL SCREEN BILAT W/CAD HISTORY: Routine screening COMPARISON: 06/06/2016 This study was interpreted with the benefit of Computerized Aided Detection (CAD). The breast parenchyma is primarily fatty replaced. Breast parenchyma level density A. FINDINGS: There are small unchanged lymph node type densities projected over the axillary tail regions of both breasts. No new or enlarging breast densities are seen. Benign type calcifications are present. No suspicious microcalcifications have developed. IMPRESSION: Stable mammograms without evidence of malignancy. BI-RADS CATEGORY: 2 BENIGN FINDING(S) RECOMMENDED FOLLOW-UP: 12M 12 MONTH FOLLOW-UP PQRS compliance statement: Patient information was entered into a reminder system with a target due date for the next mammogram. Mammography is a sensitive method for finding small breast cancers, but it does not detect them all and is not a substitute for careful clinical examination. A negative mammogram does not negate a clinically suspicious finding and should not result in delay in biopsying a clinically suspicious abnormality. "Our facility is accredited by the [employer] Mammography Program."
== END | disposition home or self-care (01) ==
LOC: MAMMO 15:40
PROVIDERS: ATTEND Family Medicine
DX: Z12.31 Encounter for screening mammogram for malignant neoplasm of breast (principal)
CPT/HCPCS: G0202; 77067

== ENCOUNTER 2017-10-20 10:53 | Emergency (ER) | payer OTHER ==
[2017-10-20 11:58] LABS: BILIRUBIN,URINE NEGATIVE (NEG); CLARITY,URINE CLEAR; COLOR,URINE YELLOW; GLUCOSE,URINE NEGATIVE (NEG); NITRITE,URINE NEGATIVE (NEG); PROTEIN,URINE 30 mg/dL (NEG-TRACE); UROBILINOGEN,URINE 0.2 mg/dL (0.2 mg/dL)
[2017-10-20 12:05] LABS: SQUAMOUS EPITHELIAL CELL,UR FEW /LPF
[2017-10-20 12:06] LABS: HYALINE CASTS, URINE OCCASIONAL /HPF
[2017-10-20 12:07] LABS: BACTERIA,URINE 0 /HPF (0-FEW); RBC,URINE OCC /HPF (0-2); WBC,URINE 0 /HPF (0-4)
[2017-10-20] MEDS ORDERED: CONTRAST GIVEN MC (12:30)
[2017-10-20] MEDS: IOHEXOL 300 MG/ML 100ML VIAL. IV (12:30)
[2017-10-20] MEDS: IPRATRPIUM/ALBUTEROL 0.5/2.5MG 3 ML NEBU. NEB (12:38)
[2017-10-20 12:39] LABS: BASO # 0.1 x10^3/uL (0.0-0.2); BASO % 1 % (0-3); EOS % 0 % (0-3); HEMATOCRIT 39.6 % (36.0-47.0); HEMOGLOBIN 12.7 g/dL (12.0-15.5); LYMPH # 1.1 x10^3/uL (1.0-4.8); LYMPH % 8 % (24-48); MEAN CORPUSCULAR HEMOGLOBIN 26 pg (25-35); MEAN CORPUSCULAR HGB CONC 32 g/dL (31-37); MEAN CORPUSCULAR VOLUME 80 fL (79-100); MONO # 0.5 x10^3/uL (0.0-1.1); MONO % 3 % (0-9); NEUT # 12.3 x10^3uL (1.8-7.7); NEUT % 88 % (31-73); PLATELET COUNT 337 x10^3/uL (140-400); RED BLOOD COUNT 4.95 x10^6/uL (3.50-5.40); RED CELL DISTRIBUTION WIDTH 17.2 % (11.5-14.5); WHITE BLOOD COUNT 14.1 x10^3/uL (4.0-11.0)
[2017-10-20 12:42] LABS: ADD MAN DIFF? YES
[2017-10-20 12:45] LABS: AMPHETAMINE/METHAMPHETAMINE NEG (NEG); BARBITURATES NEG (NEG); BENZODIAZEPINES NEG (NEG); CANNABINOIDS NEG (NEG); COCAINE NEG (NEG); ETHANOL, URINE NEG (NEG); METHADONE NEG (NEG); OPIATES NEG (NEG); PHENCYCLIDINE NEG (NEG)
[2017-10-20 12:54] LABS: PROTHROMBIN TIME PATIENT 12.7 SEC (11.7-14.0)
[2017-10-20 12:56] LABS: ANION GAP 13 (6-14); BLOOD UREA NITROGEN 30 mg/dL (7-20); CARBON DIOXIDE 25 mmol/L (21-32); CHLORIDE 96 mmol/L (98-107); CREATININE 1.3 mg/dL (0.6-1.0); GFR 42.2; GLUCOSE 316 mg/dL (70-99); POTASSIUM 4.5 mmol/L (3.5-5.1); SODIUM 134 mmol/L (136-145)
[2017-10-20 13:00] LABS: ALBUMIN 4.1 g/dL (3.4-5.0); ALK PHOS 133 U/L (46-116); ALT (SGPT) 77 U/L (14-59); AST (SGOT) 51 U/L (15-37); DIRECT BILIRUBIN 0.1 mg/dL (0.0-0.2); LIPASE 169 U/L (73-393); MAGNESIUM 2.3 mg/dL (1.8-2.4); TOTAL BILIRUBIN 0.4 mg/dL (0.2-1.0)
[2017-10-20 13:01] LABS: TROPONINI < 0.017 ng/mL (0.000-0.055)
[2017-10-20 13:03] LABS: CKMB INDEX 2.4 % (0-4); CKMB MASS 2.3 ng/mL (0.0-3.6); CREATINE KINASE 95 U/L (26-192); D-DIMER 0.31 ug/mlFEU (0.00-0.50)
[2017-10-20 13:03] LABS: NT-PRO BNP 22 pg/mL (0-124)
[2017-10-20] MEDS: IV NORMAL SALINE 1000ML BAG 1,000 ML IV ×2 (13:22→14:43)
[2017-10-20 13:25] LABS: % BANDS 12 % (0-9); % EOS 1 % (0-5); % LYMPHS 4 % (24-48); % MONOS 2 % (0-10); % SEGS 81 % (35-66); PLT ESTIMATE ADEQUATE (ADEQUATE)
[2017-10-20 13:34] LABS: TROPONIN BY ISTAT 0.01 ng/ml (<0.08)
== END 2017-10-20 16:34 | disposition home or self-care (01) ==
LOC: ER 10:53
DX: R06.02 Shortness of breath (principal); R09.81 Nasal congestion; K21.9 Gastro-esophageal reflux disease without esophagitis; J45.909 Unspecified asthma, uncomplicated; K58.9 Irritable bowel syndrome, unspecified; E11.39 Type 2 diabetes mellitus with other diabetic ophthalmic complication; H40.9 Unspecified glaucoma; Z90.710 Acquired absence of both cervix and uterus; Z90.49 Acquired absence of other specified parts of digestive tract; Z79.52 Long term (current) use of systemic steroids; Z88.1 Allergy status to other antibiotic agents; Z88.7 Allergy status to serum and vaccine; Z88.8 Allergy status to other drugs, medicaments and biological substances; Z88.5 Allergy status to narcotic agent; Z91.013 Allergy to seafood
CPT/HCPCS: 36415; 71045; 71275; 80048; 80076; 80307; 81001; 82553; 83690; 83735; 83880; 84484; 85007; 85025; 85379; 85610; 93005; 94640; 96360; 96361; 99285-25; J7030; J7620; Q9967

== ENCOUNTER → 2017-11-21 | Outpatient (CLI) | payer OTHER ==
[2017-11-21 14:30] LABS: ADD MAN DIFF? NO; BASO # 0.1 x10^3/uL (0.0-0.2); BASO % 1 % (0-3); EOS # 0.2 x10^3/uL (0.0-0.7); EOS % 2 % (0-3); HEMATOCRIT 37.4 % (36.0-47.0); HEMOGLOBIN 11.7 g/dL (12.0-15.5); LYMPH # 2.9 x10^3/uL (1.0-4.8); LYMPH % 24 % (24-48); MEAN CORPUSCULAR HEMOGLOBIN 25 pg (25-35); MEAN CORPUSCULAR HGB CONC 31 g/dL (31-37); MEAN CORPUSCULAR VOLUME 79 fL (79-100); MONO # 0.7 x10^3/uL (0.0-1.1); MONO % 6 % (0-9); NEUT # 8.1 x10^3uL (1.8-7.7); NEUT % 68 % (31-73); PLATELET COUNT 391 x10^3/uL (140-400); RED BLOOD COUNT 4.71 x10^6/uL (3.50-5.40); RED CELL DISTRIBUTION WIDTH 16.8 % (11.5-14.5)
[2017-11-21 17:27] LABS: HYPOCHROMIA SLIGHT; PLT ESTIMATE ADEQUATE (ADEQUATE)
[2017-11-22 00:11] LABS: IMMUNOGLOBULIN G 591 mg/dL (700-1600)
== END | disposition home or self-care (01) ==
LOC: LAB 14:09
DX: J45.909 Unspecified asthma, uncomplicated (principal)
CPT/HCPCS: 36415; 82784; 85025

== ENCOUNTER → 2017-12-04 | Outpatient (CLI) | payer OTHER ==
[2017-12-10 12:17] LABS: IMMUNOGLUBULIN E 4 IU/mL (0-100)
== END | disposition home or self-care (01) ==
LOC: LAB 07:42
DX: J45.909 Unspecified asthma, uncomplicated (principal); I10 Essential (primary) hypertension; E11.9 Type 2 diabetes mellitus without complications
CPT/HCPCS: 36415; 82784

== ENCOUNTER → 2017-12-04 | Outpatient (CLI) | payer OTHER ==
[2017-12-08 10:10] LABS: PNEUMO AB TYPE 1 0.2 ug/mL (>1.3); PNEUMO AB TYPE 12(12F) 0.4 ug/mL (>1.3); PNEUMO AB TYPE 14 6.6 ug/mL (>1.3); PNEUMO AB TYPE 17 16.2 ug/mL (>1.3); PNEUMO AB TYPE 19(19F) 2.6 ug/mL (>1.3); PNEUMO AB TYPE 2 0.5 ug/mL (>1.3); PNEUMO AB TYPE 20 14.5 ug/mL (>1.3); PNEUMO AB TYPE 22 0.9 ug/mL (>1.3); PNEUMO AB TYPE 23(23F) 2.3 ug/mL (>1.3); PNEUMO AB TYPE 26(6B) 14.9 ug/mL (>1.3); PNEUMO AB TYPE 3 0.5 ug/mL (>1.3); PNEUMO AB TYPE 34 0.4 ug/mL (>1.3); PNEUMO AB TYPE 4 2.5 ug/mL (>1.3); PNEUMO AB TYPE 43 4.4 ug/mL (>1.3); PNEUMO AB TYPE 5 0.6 ug/mL (>1.3); PNEUMO AB TYPE 51(7F) 7.9 ug/mL (>1.3); PNEUMO AB TYPE 54 2.3 ug/mL (>1.3); PNEUMO AB TYPE 56(18C) 7.4 ug/mL (>1.3); PNEUMO AB TYPE 57(19A) 22.5 ug/mL (>1.3); PNEUMO AB TYPE 68(9V) 3.5 ug/mL (>1.3); PNEUMO AB TYPE 70 2.5 ug/mL (>1.3); PNEUMO AB TYPE 8 0.4 ug/mL (>1.3); PNEUMO AB TYPE 9(9N) 1.6 ug/mL (>1.3)
== END | disposition home or self-care (01) ==
LOC: LAB 07:50
DX: D80.1 Nonfamilial hypogammaglobulinemia (principal); B99.9 Unspecified infectious disease
CPT/HCPCS: 36415; 86609

== ENCOUNTER → 2018-01-21 | Outpatient (CLI) | payer OTHER ==
[2018-01-21 08:36] LABS: BASO # 0.1 x10^3/uL (0.0-0.2); BASO % 1 % (0-3); EOS # 1.1 x10^3/uL (0.0-0.7); EOS % 11 % (0-3); HEMATOCRIT 33.6 % (36.0-47.0); HEMOGLOBIN 10.7 g/dL (12.0-15.5); LYMPH # 2.1 x10^3/uL (1.0-4.8); LYMPH % 19 % (24-48); MEAN CORPUSCULAR HEMOGLOBIN 25 pg (25-35); MEAN CORPUSCULAR HGB CONC 32 g/dL (31-37); MEAN CORPUSCULAR VOLUME 78 fL (79-100); MONO # 0.4 x10^3/uL (0.0-1.1); MONO % 4 % (0-9); NEUT # 7.1 x10^3uL (1.8-7.7); NEUT % 66 % (31-73); PLATELET COUNT 411 x10^3/uL (140-400); RED BLOOD COUNT 4.34 x10^6/uL (3.50-5.40); RED CELL DISTRIBUTION WIDTH 18.4 % (11.5-14.5); WHITE BLOOD COUNT 10.8 x10^3/uL (4.0-11.0)
[2018-01-21 08:37] LABS: ADD MAN DIFF? YES
[2018-01-21 09:38] LABS: % BANDS 6 % (0-9); % EOS 13 % (0-5); % LYMPHS 19 % (24-48); % MONOS 4 % (0-10); % SEGS 58 % (35-66); ANISOCYTOSIS SLIGHT; PLT ESTIMATE INCREASED (ADEQUATE)
== END | disposition home or self-care (01) ==
LOC: LAB 08:00
DX: D64.9 Anemia, unspecified (principal)
CPT/HCPCS: 36415; 85007; 85025